=== PATIENT | female | born 1955 | race Caucasian/White ===

== ENCOUNTER 2019-05-05 21:47 | Emergency (ER) | payer MEDICARE, OTHER ==
[~2019-05-05] VITALS: Ht 175.3 cm; Wt 88.5 kg
[2019-05-05] MEDS ORDERED: CITALOPRAM HBR20 MG PO (22:07)
[2019-05-05] MEDS ORDERED: DOXYCYCLINE HY100 MG PO (22:08)
[2019-05-05] MEDS ORDERED: AUGMENTIN 875-1 EACH PO (22:32)
== END 2019-05-05 22:45 | disposition home or self-care (01) ==
LOC: ED 21:47
DX: S00.87XA Other superficial bite of other part of head, initial encounter (principal); W54.0XXA Bitten by dog, initial encounter; Z79.899 Other long term (current) drug therapy
CPT/HCPCS: 12011; 99283-25

== ENCOUNTER 2020-08-01 17:22 | Emergency (ER) | payer MEDICARE, OTHER ==
[~2020-08-01] VITALS: Ht 175.3 cm; Wt 83.9 kg
[~2020-08-01 17:22] MED LIST: AUGMENTIN 875-1 EACH PO; CITALOPRAM HBR20 MG PO; DOXYCYCLINE HY100 MG PO
[2020-08-01] MEDS ORDERED: METOPROLOL SUCC25 MG PO (17:44)
[2020-08-01] MEDS ORDERED: DOXYCYCLINE HYC20 MG PO (17:45)
== END 2020-08-01 20:33 | disposition left against medical advice (07) ==
LOC: ED 17:22
DX: R51.9 Headache, unspecified (principal); Z79.899 Other long term (current) drug therapy
CPT/HCPCS: 70450; 80053; 85025; 96374; 96375; 99284-25; J2405; J2765

== ENCOUNTER 2024-08-17 11:08 | Inpatient (IN) | payer MEDICARE, OTHER ==
[~2024-08-17] VITALS: Ht 175.3 cm; Wt 101.5 kg
--- NOTE | ~2024-08-17 | DS ---
[facility] [address], [place] [address] Draft ADMISSION DATE: 08/17/2024 DISCHARGE DATE: 08/21/2024 REASON FOR ADMISSION: Right lower intraabdominal inflammatory process, possible perforated appendicitis. HISTORY OF PRESENT ILLNESS: This 68-year-old white woman is a patient of AMELIA Barry. The patient has had recurrent persistent pain for over a month, though looked clinically quite normal and clinical exam rather minimal. Despite her lack of progress regarding abdominal pain and having no objective findings of concern, she underwent a CT scan under the direction of Phill Huynh. This showed a possible abscess in the right lower abdomen with possible perforated appendicitis. She was directed to the ER at that point. Evaluation in the emergency room undertaken showed mild tenderness in the right lower abdomen. CT scan showed an impressive inflammatory change in the right lower abdomen with small bowel loops, cecum and appendix somewhat dilated. This was discordant to her clinical exam and appearance; she had no sign of toxicity at all. PAST MEDICAL HISTORY: Noted to be quite unremarkable, having only undergone tonsillectomy and adenoidectomy, but no surgery otherwise. She has no family history of cancer, specifically not colon cancer. PERTINENT PHYSICAL EXAMINATION: GENERAL: Pleasant white woman, looks to be no sign of acute distress. VITAL SIGNS: Temperature 97.9, pulse 61, blood pressure 131/83, O2 saturation 97% on room air. NECK: Trachea is midline. CHEST: Clear. HEART: Regular without murmur. ABDOMEN: Nondistended. Rovsing sign was negative. She did have some tenderness at McBurney's point, which was rather marked. There was no palpable mass. LABORATORY STUDIES: Unremarkable with a normal CBC and urinalysis. White count was 5.68, hematocrit 38.2, platelets 260,000. Chem profile normal. Liver enzymes normal. Albumin low at 2.8, lipase 36. Urinalysis cancelled, though initially planned for evaluation. PATIENT NAME: BERLIN ROSENBAUM DISCHARGE SUMMARY DATE OF : 51 REPORT #: [id number] PHYSICIAN: ANSHU MOLINA MD PCP: PHILL HUYNH PAC REPORT IS CONFIDENTIAL AND NOT TO BE RELEASED WITHOUT AUTHORIZATION [facility] [address], [place] [address] Draft HOSPITAL COURSE: She was resuscitated, given intravenous broad-spectrum antibiotic, Zosyn and recommended to undergo operative intervention that night. She did undergo a laparoscopy where she was found to have a non-manipulatable inflammatory mass in the right lower abdomen. The cecum and small bowel loops were densely adherent to each other. She had conversion to open operation where she was found to have a dense inflammatory process including the mesentery of the small bowel. The area of the cecum and more than a foot of ileum. Operative intervention ultimately included complete mobilization of inflammatory mass away from the retroperitoneum. Identification of the small bowel loop entering the inflammatory cicatrix and normal right mid colon. Segmental resection of the colon and small bowel was undertaken. The inflammatory process explanted entirely. An end-to-side ileal right colonic anastomosis was performed. A drain was placed. Postoperatively, she felt much better. A drain that was placed was removed in a few days as it showed only serosanguineous fluid and no evidence of purulence. She was restarted on her usual medications and by day of discharge, is ambulating well, tolerating regular diet, has minimal incisional pain. The wound is healing well and pathology report is pending. DISCHARGE MEDICATIONS: 1. Tylenol 1000 mg p.o. q.6 hours as needed for pain. 2. Hydromorphone, Dilaudid 2 mg 1-2 p.o. q.4 hours p.r.n. severe pain #10. She will resume her usual medication at home, which includes Naprosyn 500 mg two tabs daily as needed for pain, citalopram 20 mg p.o. daily, metoprolol 25 mg daily. 3. Finasteride 2.5 mg p.o. daily for hair loss. 4. Vitamin D3 25 mcg tablet daily. 5. Vitamin B complex one tablet p.o. daily. 6. Psyllium husk 1.04 g p.o. daily. 7. Zolpidem 5 mg at bedtime as needed for sleep. 8. Dicyclomine 20 mg p.o. t.i.d. for stomach cramps. 9. Naprosyn 500 mg two tabs daily as needed for pain. 10. Albuterol inhaler two puffs q.6h as needed for wheezing. 11. MiraLAX. DISCHARGE DIAGNOSES: 1. Acute inflammatory process involving terminal ileum, appendix and cecum, etiology uncertain, status post complete resection with partial colectomy and ileectomy with end-to-side ileocolonic anastomosis. 2. Anxiety disorder. 3. Reactive airways disease. 4. Longstanding "irritable bowel syndrome.". PATIENT NAME: BERLIN ROSENBAUM DISCHARGE SUMMARY DATE OF : 51 REPORT #: [id number] PHYSICIAN: ANSHU MOLINA MD PCP: PHILL HUYNH PAC REPORT IS CONFIDENTIAL AND NOT TO BE RELEASED WITHOUT AUTHORIZATION [address] [place], [place] [address] Draft FOLLOWUP PLAN: She will call on Thursday to set up an appointment with me for a month or so. If she has problems in the meantime, she will let me know. MD BLANCA Rivera/CHARLES /[id number] cc: PEPPER Barry Dr[facility] Copies: PHILL HUYNH ~ PATIENT NAME: BERLIN ROSENBAUM DISCHARGE SUMMARY DATE OF : 51 REPORT #: [id number] PHYSICIAN: ANSHU MOLINA MD PCP: PHILL HUYNH REPORT IS CONFIDENTIAL AND NOT TO BE RELEASED WITHOUT AUTHORIZATION
[~2024-08-17 11:08] MED LIST changes: +DOXYCYCLINE HYC20 MG PO; +METOPROLOL SUCC25 MG PO; +SEVOFLURANE 250 ML BTL INH ONE
[2024-08-17] MEDS ORDERED: ondansetron HCL 4 MG/2 ML VIAL IV ONE (11:30)
[2024-08-17 11:45] LABS: BASOPHILS 0.7 % (0.1-1.2); EOSINOPHILS 2.6 % (0.7-5.8); HEMATOCRIT 38.2 % (34.1-44.9); HEMOGLOBIN 12.7 g/dL (11.2-15.7); LYMPHOCYTES 19.2 % (19.3-51.7); MCH 32.6 PG (25.6-32.2); MCHC 33.2 g/dL (32.2-35.5); MCV 98.2 fL (79.4-94.8); MONOCYTES 11.6 % (4.7-12.5); NEUTROPHILS 65.7 % (34.0-71.1); PLATELET COUNT 260 K/uL (182-369); RBC 3.89 M/uL (3.93-5.22)
[2024-08-17] MEDS ORDERED: LACTATED RINGER'S 1,000 ML IV SCH ×2 (11:45→18:15)
[2024-08-17 12:01] LABS: ALBUMIN 2.8 g/dL (3.4-5.0); ALBUMIN/GLOBULIN RATIO 0.68 (1.1-2.4); BILIRUBIN, TOTAL 0.4 mg/dL (0.2-1.0); BUN/CREATININE RATIO 12.82 (6.0-28.6); CALCIUM 8.8 mg/dL (8.5-10.1); CREATININE, SERUM 0.78 mg/dL (0.55-1.02); PROTEIN, TOTAL 6.9 g/dL (6.4-8.2)
[2024-08-17] MEDS ORDERED: PIPERACILLIN/TAZOBACTAM 4.5 GM in SODIUM CHLORIDE 0.9% 100 ML IV ONE (12:30)
[2024-08-17] MEDS ORDERED: FAMOTIDINE 20 MG/ 2 ML VIAL IV ONE (12:45)
[2024-08-17] MEDS ORDERED: ROCURONIUM BROMIDE 50 MG/5 ML SYR ONE ×2 (14:14→15:03)
[2024-08-17] MEDS ORDERED: KETOROLAC TROMETHAMINE 30 MG/ML VIAL ONE (14:14)
[2024-08-17] MEDS ORDERED: fentaNYL citrate 100 MCG/2 ML VIAL ONE ×2 (14:14→14:58)
[2024-08-17] MEDS ORDERED: DEXAMETHASONE SOD PHOS 4 MG/ML VIAL ONE ×2 (14:14→15:21)
[2024-08-17] MEDS ORDERED: propofoL 200 MG/20 ML VIAL ONE (14:14)
[2024-08-17] MEDS ORDERED: LIDOCAINE HCL 2% 5 ML SDV ONE (14:14)
[2024-08-17] MEDS ORDERED: ondansetron HCL 4 MG/2 ML VIAL ONE (14:14)
[2024-08-17] MEDS ORDERED: LIDOCAINE HCL 1% 30 ML SDV ONE (14:47)
[2024-08-17] MEDS ORDERED: dexmedeTOMIDine HCl 200 MCG/2 ML VIAL ONE (14:47)
[2024-08-17] MEDS ORDERED: KETAMINE in NS 50 MG/5 ML SYR ONE (14:50)
[2024-08-17] MEDS ORDERED: MAGNESIUM SULFATE 1 GM/2 ML VIAL ONE (14:58)
[2024-08-17] MEDS ORDERED: SODIUM CHLORIDE 0.9% 20 ML IV ONE (15:00)
[2024-08-17] MEDS ORDERED: ESMOLOL HCL 100 MG/10 ML VIAL IV ONE (15:00)
[2024-08-17] MEDS ORDERED: FINASTERIDE5 MG PO (15:06)
[2024-08-17] MEDS ORDERED: Ropivacaine HCl 0.5% 30 ML VIAL ONE (15:17)
[2024-08-17] MEDS ORDERED: SODIUM CHLORIDE 0.9% 60 ML IV ONE (15:17)
[2024-08-17] MEDS ORDERED: LACTATED RINGER'S 1,000 ML IV ONE ×2 (15:23→17:03)
[2024-08-17] MEDS ORDERED: ACETAMINOPHEN 1,000 MG/100 ML VIAL ONE (17:03)
[2024-08-17] MEDS ORDERED: SUGAMMADEX SODIUM 200 MG/2 ML ML ONE (17:22)
--- NOTE | 2024-08-17 18:05 | NUR ---
08/17/24 1805 Sadaf Osorio 1751-PATIENT ARRIVED TO PACU ON 6L MASK ORAL AIRWAY IN PLACE RN DOING JAW THRUST TO MAINTAIN OPEN AIRWAY. SINUS BRADYCARDIA HR 57. IVF INFUSING. DRESSING TO MIDLINE ABDOMEN CDI WITH ERNESTO DRAIN TO RLQ SANGUINOUS DRAINAGE. GARG CATHETER DRAINING YELLOW URINE. 1800-PATIENT REACTIVE TO VERBAL STIMULI SLIGHTLY LIFTS HEAD OPENS EYES AND RAISES RIGHT HAND. ORIENTED TO PACU ORAL AIRWAY REMOVED. DENIES PAIN OR NAUSEA. PILLOW PLACED BENEATH HEAD. HOB ELEVATED. 6L MASK RR EVEN 97% PATIENT DOZES BACK TO SLEEP.
[2024-08-17] MEDS ORDERED: ENOXAPARIN SODIUM 40 MG/0.4 ML SYR SUB-Q SCH (18:11)
[2024-08-17] MEDS ORDERED: ondansetron HCL 4 MG/2 ML VIAL IV PRN ×2 (18:15)
[2024-08-17] MEDS ORDERED: ACETAMINOPHEN 1,000 MG/100 ML VIAL IV PRN (18:15)
[2024-08-17] MEDS ORDERED: NALOXONE HCL 0.4 MG SYR IV PRN (18:15)
[2024-08-17] MEDS ORDERED: HYDROmorphone HCL 1 MG/ML SYR IV PRN ×2 (18:15)
[2024-08-17] MEDS ORDERED: LIDOCAINE 2% VISCOUS 6 ML SYR TOP ONE (18:15)
[2024-08-17] MEDS ORDERED: fentaNYL citrate 50 MCG/ML SDV IV PRN (18:15)
[2024-08-17] MEDS ORDERED: KETOROLAC TROMETHAMINE 15 MG/ML VIAL IV PRN (18:15)
[2024-08-17] MEDS ORDERED: IBLOOD GLUCOSE TEST STRIP 1 EA TEST VI PRN (18:15)
[2024-08-17 18:56] VITALS: BP 100/59
--- NOTE | 2024-08-17 19:01 | NUR ---
Patient to the medical floor. Patient is drowsy, pt easily wakes to verbal sitmuli and answers questions appropriately. Patient reports tolerable pain, 2/10 in RUQ. Vital signs stable, cpox in place, sp02 93% on 3L 02, resp even and non labored. Abdominal midline dressing noted, cdi. ERNESTO drain to RLQ. Patient oriented to room and call light.
--- NOTE | 2024-08-17 19:25 | NUR ---
REPORT RECEIVED FROM KAVITHA HERBERT. pt RESTING IN THE BED. pt C/O 09/15 PAIN. PRN PAIN MED ADMINISTERED BY PIEDAD PLUMMER. pt BOARD UPDATED. pt DENIES ANY OTHER NEEDS AT THIS TIME. CALL LIGHT WITHIN REACH.
--- NOTE | 2024-08-17 19:30 | NUR ---
Admin dilaudid 1mg iv for reports of 09/15 right upper abdomen.
[2024-08-17 20:05] VITALS: BP 99/53
--- NOTE | 2024-08-17 20:50 | NUR ---
ASSESSMENT AND VITAL SIGNS DONE. pt C/O 8 PAIN. PRN PAIN MEDS ADMINISTERED. CPOX ON. MID LINE INCISION CDI. ERNESTO DRAIN DRESSING INTACT. NO DRAINAGE NOTED AROUND THE TUBING. BOWEL TONES ARE ACTIVE. pt DENIES ANY OTHER NEEDS AT THIS TIME. CALL LIGHT WITHIN REACH.
[2024-08-17 20:58] VITALS: BP 96/59
[2024-08-17 21:00] VITALS: BP 96/59
[2024-08-17] MEDS ORDERED: FAMOTIDINE 20 MG/ 2 ML VIAL IV SCH (21:00)
[2024-08-17 22:00] VITALS: BP 101/53
--- NOTE | 2024-08-17 22:03 | NUR ---
FINAL SET OF POST-OP VS OBTAINED, B/P STILL SOFT. PT VERY SWEATY, STATES WAS HAVING A "HOT FLASH". TOOTHBRUSH & TOOTHPASTE PROVIDED PER REQUEST. LIGHTS DIMMED PER PT REQUEST.
--- NOTE | 2024-08-17 22:15 | NUR ---
pt C/O 09/15 PAIN. PRN PAIN MEDS ADMINISTERED. pt DENIES ANY OTHER NEEDS AT THIS TIME. CALL LIGHT WITHIN REACH.
--- NOTE | 2024-08-17 23:02 | NUR ---
pt RESTING IN THE BED WITH EYES CLOSED. RR EVEN AND UNLABORED. CALL LIGHT WITHIN REACH.
[2024-08-18] VITALS (9 sets, daily range): BP systolic 102–120; BP diastolic 54–64
--- NOTE | 2024-08-18 01:41 | NUR ---
IN RM TO DO VITAL SIGNS. pt C/O 2/10 PAIN. PRN PAIN MEDS ADMINISTERED. 3LNC. WATER REFRESHED. ASSESSMENT DONE. pt STATES HER PAIN JUMPS UP TO A 8/10 WHEN SHE MOVES. pt DENIES ANY OTHER NEEDS AT THIS TIME. CALL LIGHT WITHIN REACH.
--- NOTE | 2024-08-18 03:32 | NUR ---
pt CALLED AND C/O 09/15 PAIN. PRN PAIN MEDS ADMINISTERED. WATER REFRESHED. pt DENIES ANY OTHER NEEDS AT THIS TIME. CALL LIGHT WITHIN REACH.
--- NOTE | 2024-08-18 05:13 | NUR ---
pt RESTING IN THE BED WITH EYES CLOSED. RR EVEN AND UNLABORED. CALL LIGHT WITHIN REACH.
[2024-08-18 05:34] LABS: EOSINOPHILS 0 % (0.7-5.8)
[2024-08-18 05:37] LABS: BASOPHILS 0.2 % (0.1-1.2); HEMATOCRIT 34.8 % (34.1-44.9); HEMOGLOBIN 11.2 g/dL (11.2-15.7); LYMPHOCYTES 6.4 % (19.3-51.7); MCH 32.2 PG (25.6-32.2); MCHC 32.2 g/dL (32.2-35.5); MONOCYTES 4.4 % (4.7-12.5); NEUTROPHILS 88.7 % (34.0-71.1); PLATELET COUNT 292 K/uL (182-369); RBC 3.48 M/uL (3.93-5.22)
[2024-08-18 05:48] LABS: ANION GAP 11.4 (7-21); BUN/CREATININE RATIO 10.12 (6.0-28.6); CALCIUM 8.3 mg/dL (8.5-10.1); CREATININE, SERUM 0.79 mg/dL (0.55-1.02); POTASSIUM 4.4 mmol/L (3.5-5.1)
--- NOTE | 2024-08-18 05:54 | NUR ---
CARTON GLUING MACHINE OPERATOR OBTAINED VITALS AND I&O. PT STATES NO NEEDS AT THIS TIME. CALL LIGHT WITHIN REACH.
--- NOTE | 2024-08-18 06:40 | NUR ---
pt C/O 08/16. PRN PAIN MEDS ADMINISTERED. pt DENIES ANY OTHER NEEDS AT THIS TIME. CALL LIGHT WITHIN REACH.
--- NOTE | 2024-08-18 07:02 | NUR ---
Pt report received from PIEDAD Han. Pt is resting in bed, eyes closed, breathing is regular, even, and non-labored. Side rails up x4, call light in reach.
--- NOTE | 2024-08-18 07:59 | NUR ---
UR CLINICAL REVIEW: 2 MN SANDRA, MEETS INPT FOT PERFORATED VISCUX INCLUDING POSSIBLE APPENDICITIS IV FLUIDS, IV ANALGESICS, CLEAR LIQUID DIET MEDICARE INPT 08/17/2024 @ 0523 ORDER MATCHES REG NO AUTH REQUIRED PER MEDICARE RULES PLAN TO DC TO HOME WHEN MEDICALLY STABLE.
--- NOTE | 2024-08-18 07:59 | NUR ---
Advised by Hellen Kingston that this pt's O2 is off and RT is in the room with pt, pt sats in the 90s.
--- NOTE | 2024-08-18 09:14 | NUR ---
Pt up, ambulating hallways with Aide DaEmiliana Kingston.
--- NOTE | 2024-08-18 09:24 | NUR ---
HOURLY ROUNDING. PATIENT AND I AMBULATED AROUND THE NURSE STATION, LINENS HAVE BEEN CHANGED. WATER CUP HAS BEEN FILLED AND BOARD HAS BEEN UPDATED. PATIENT IS NOW IN RECLINER
--- NOTE | 2024-08-18 09:33 | HP ---
[facility] [address], [place] [address] Signed ADMISSION DATE: 08/17/2024 PREOPERATIVE DIAGNOSIS: Right lower intraabdominal abscess, possible perforated viscus including possible appendicitis. HISTORY OF PRESENT ILLNESS: This 68-year-old white woman is sent over four weeks of increasing right lower abdominal pain. Her primary provider, Phill Huynh, treated her initially empirically for urinary tract infection and some of her pain and tenderness was in the suprapubic area. A urinalysis was said to have been found to be negative and therefore treatment not further pursued. She had increasing pain in the right lower abdomen and on that basis, underwent a CT scan of the abdomen today as an outpatient. The findings noted, showed a large area of phlegmon in around the small bowel with wall thickening with question of possible perforated appendicitis. Incidentally noted was a bandlike hypodensity of the right lobe of the liver measuring 14 mm in maximum dimension and was considered "nonspecific." The appendix was considered large proximally measuring 11 mm extending caudally to the ill-defined inflammation in and around small bowel loops with bowel wall thickening. The tip of the appendix was not defined. The phlegmonous fluid collection measured 5.5 cm in maximum dimension. Terminal ileum was considered normal. PAST MEDICAL HISTORY: Surprisingly unremarkable. She did undergo tonsillectomy and adenoidectomy in the distant past but has never had surgery otherwise. HOME MEDICATIONS: Include 1. Finasteride. 2. Phenazopyridine (Pyridium and dicyclomine). She does admit to a lifelong history of "irritable bowel syndrome" but notes that since these symptoms have developed she has not had any diarrhea or other similar problem. FAMILY HISTORY: She denies any family history of colon cancer. SOCIAL HISTORY: She lives alone. 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 Electronically Signed By: ANSHU MOLINA MD 08/18/24 0933 PATIENT NAME: BERLIN ROSENBAUM HISTORY AND PHYSICAL DATE OF : 51 REPORT #: [id number] PHYSICIAN: ANSHU MOLINA MD PCP: PHILL HUYNH PAC REPORT IS CONFIDENTIAL AND NOT TO BE RELEASED WITHOUT AUTHORIZATION [facility] [address], [place] [address] Signed REVIEW OF SYSTEMS: She denies any shortness of breath or chest pain. She has had no dysphagia or dysuria. Denies any hematemesis. Her pain is dominantly in the right lower abdomen but also in the suprapubic area. PHYSICAL EXAMINATION: GENERAL: A very pleasant white woman who looks to be in no sign of acute distress. VITAL SIGNS: Temperature is 97.9, pulse 61, blood pressure 131/83, oxygen saturation 97% on room air. NECK: Trachea is midline. CHEST: Clear. HEART: Regular without murmur. ABDOMEN: Nondistended. Rovsing sign is negative. She does have tenderness at McBurney's point, which is marked. There is no palpable mass. EXTREMITIES: Show no clubbing, cyanosis, or edema. LABORATORY STUDIES: Show a white count of 5.68, hematocrit 38.2, platelets 260,000. Chem profile is essentially normal. Liver enzymes normal. Albumin low at 2.8, lipase 36. Urinalysis was canceled, though initially planned for evaluation. Review of the CT scan was undertaken with findings noted above. ASSESSMENT: Whatever the underlying process is, it has been going on for several weeks by her history. This may represent perforated appendicitis with all walled-off abscess or may represent a more sinister problem including carcinoma of the cecum or some small bowel problem. There is no sign of free air and there is not a well-formed abscess at present, only phlegmonous area with fluid collection. I would recommend laparoscopy breakdown of loculations, drainage of abscess as appropriate and placement of drain and if possible appendectomy as appropriate. This problem may require open operation, which may require bowel resection, particularly if neoplasm is identified. Most likely finding will be perforated appendicitis with periappendiceal abscess and local phlegmon formation. In any case, we were prepared for whatever may be found and I discussed with her the risk of the operation including but not limited to bleeding, infection, need for bowel resection, need for open surgery, need for drain, and need for delayed procedure. Specifically, if structures are too inflamed and cannot be well identified, which would require interval appendectomy or other interval resectional therapy. She understands all of this and wished to proceed. Electronically Signed By: ANSHU MOLINA MD 08/18/24 0933 PATIENT NAME: BERLIN ROSENBAUM HISTORY AND PHYSICAL DATE OF : 51 REPORT #: [id number] PHYSICIAN: ANSHU MOLINA MD PCP: PHILL HUYNH [facility] REPORT IS CONFIDENTIAL AND NOT TO BE RELEASED WITHOUT AUTHORIZATION [address] [address] Signed Anshu Molina MD JM/MODL /[id number] cc: Dr. Teofilo Pryor PA-C Copies: PHILL HUYNH ~ Electronically Signed By: ANSHU MOLINA MD 08/18/24 0933 PATIENT NAME: BERLIN ROSENBAUM HISTORY AND PHYSICAL DATE OF : 51 REPORT #: [id number] PHYSICIAN: ANSHU MOLINA MD PCP: PHILL HUYNH REPORT IS CONFIDENTIAL AND NOT TO BE RELEASED WITHOUT AUTHORIZATION
--- NOTE | 2024-08-18 10:16 | NUR ---
PT NOT AVAILABLE FOR VISIT. PROVIDED PRAYER.
[2024-08-18] MEDS ORDERED: AMBEREN PO (10:45)
[2024-08-18] MEDS ORDERED: VITAMIN D325 MCG PO (10:46)
[2024-08-18] MEDS ORDERED: FIBER0.52 GM PO (10:46)
[2024-08-18] MEDS ORDERED: B COMPLEX1 EACH PO (10:46)
[2024-08-18] MEDS ORDERED: DICYCLOMINE HCL20 MG PO (10:47)
[2024-08-18] MEDS ORDERED: NAPROXEN500 MG PO (10:47)
[2024-08-18] MEDS ORDERED: ZOLPIDEM TARTRAT5 MG PO (10:47)
[2024-08-18] MEDS ORDERED: VENTOLIN HFA18 GM INH (10:48)
[2024-08-18] MEDS ORDERED: LUBRICANT OU (10:49)
--- NOTE | 2024-08-18 10:49 | NUR ---
MED REC COMPLETE
--- NOTE | 2024-08-18 11:23 | NUR ---
ALERT AND ORIENTED IN RECLINER, FRIENDS/FAMILY IN ROOM. PATIENT LIVES IN HOUSE WITH 3-4 STEPS TO GET INSIDE, BUT DOES HAVE HANDRAILS. NO DME. DRIVES AT BASELINE. HAS NO DIFFICULTY PAYING UTILTIES FOR FOOD OR MEDS. STATES HER PLAN IS TO RETURN HOME WHEN MEDICALLY READY. NO KNOWN CM NEEDS AT THIS TIME.
--- NOTE | 2024-08-18 12:31 | NUR ---
In with pt for pain med administration for pain in mid abdomen 7 out 10. Pt in chair, stands and transfers with fww, SBA to bed, then states she thinks she needs to pee. IV S/L for restroom use. Pt up to void but only went "two drops". Pt back to bed, socks off, scd's on, IV fluids running. Pain med administered per emar. Valeria Camarillo, CNA2 in to bladder scan pt for post residual void, 12ml noted in bladder. Pt lunch tray arrived and pt is eatiner her soup and tolerating it well. Side rails up x2, call light in reach.
--- NOTE | 2024-08-18 13:15 | NUR ---
In with pt for pain reassessment. Pt is visiting with family/friends in her room. She reports her pain is a 4 out of 10 in the midline. Pt states she has been belching but not passing gas. BT active x4. Pt denies needs at this time. Call light in reach.
--- NOTE | 2024-08-18 15:45 | NUR ---
In with pt for pain reassessment after IV dilaudid administered. Pt is talking and laughing on her cell phone. She states her pain in her abdomen is more like "bloating" now and it's about a 5. Pt has ambulated the hallway 3 times this shift, so far. Advised pt that the more she ambulates, the more it will help move any gas around and stimulate peristalsis. Pt states that she will use her call light when she gets off the phone.
--- NOTE | 2024-08-18 16:05 | NUR ---
Pt up to ambulate hallways x2 (walked down the pathway towards the front of the hospital and the entire med-surg loop x2 with this RN), tolerated well, states she feels better up and walking. Pt able to belch, but no flatus yet. Pt back to room to sit on toilet to attempt to empty bladder. Pt void 25ml into collection hat. Bladder scan volume of 25ml noted. Dr. Brar notified by phone.
--- NOTE | 2024-08-18 16:37 | NUR ---
PC to Dr. Brar to update him on this pt's post dejesus cath status. Verbal order obtained for one 500ml LR bolus x1.
[2024-08-18] MEDS ORDERED: LACTATED RINGER'S 500 ML IV PRN (16:45)
--- NOTE | 2024-08-18 18:28 | NUR ---
PATIENT IN BED AT THIS TIME. SPECIAL LIBRARY LIBRARIAN CHARTED VITALS AND I&O'S. CALL LIGHT WITHIN REACH, NO FURTHER NEEDS.
--- NOTE | 2024-08-18 19:05 | NUR ---
REPORT RECEIVED FROM PATRICK RN. pt RESTING IN THE BED. FAMILY IN THE RM. pt DENIES ANY OTHER NEEDS AT THIS TIME. CALL LIGHT WITHIN REACH. BOARD UPDATED.
--- NOTE | 2024-08-18 19:38 | NUR ---
pt UP WALKING LAPS IN THE XIONG OF MED/SURG. pt WALKING WITH FAMILY. pt DENIES ANY OTHER NEEDS AT THIS TIME.
--- NOTE | 2024-08-18 20:45 | NUR ---
ASSESSMENT AND VITAL SIGNS DONE. pt C/O 5/10 PAIN. PRN PAIN MEDS ADMINISTERED. pt STATES SHE HAD GAS WHILE ON HER WALK AND AFTER IN THE BR. pt DENIES ANY OTHER NEEDS AT THIS TIME. CALL LIGTH WITHIN REACH. BOWEL TONES ARE ACTIVE.
--- NOTE | 2024-08-18 22:37 | NUR ---
pt RESTING IN THE BED WITH EYES CLOSED. RR EVEN AND UNLABORED. CALL LIGHT WITHIN REACH.
[2024-08-19] VITALS (9 sets, daily range): BP systolic 113–161; BP diastolic 56–81
--- NOTE | 2024-08-19 00:16 | NUR ---
pt RESTING IN THE BED WITH EYES CLOSED. RR EVEN AND UNLABORED. CALL LIGHT WITHIN REACH.
--- NOTE | 2024-08-19 00:44 | NUR ---
pt CALLED AND C/O 11/16 PAIN. PRN PAIN MEDS ADMINISTERED. pt DENIES ANY OTHER NEEDS AT THIS TIME. CALL LIGHT WITHIN REACH.
--- NOTE | 2024-08-19 02:37 | NUR ---
pt RESTING IN THE BED WITH EYES CLOSED. RR EVEN AND UNLABORED. CALL LIGHT WITHIN REACH.
--- NOTE | 2024-08-19 03:47 | NUR ---
pt CALLED AND C/O 12/16 PAIN. PRN PAIN MEDS ADMINISTERED. pt WAS UP TO THE BR. BLADDER SCAN DONE WITH A RESULTS OF 200mL. pt DENIES ANY OTHER NEEDS A THIS TIME. CALL LIGHT WITHIN REACH.
--- NOTE | 2024-08-19 06:08 | NUR ---
IN RM TO DO VITAL SIGNS. pt BACK FROM THE BR. POST-RESIDUAL VOID OF 62mL ON THE BLADDER SCAN. pt DENIES ANY OTHER NEEDS AT THIS TIME. CALL LIGHT WITHIN REACH. ERNESTO EMPTIED.
--- NOTE | 2024-08-19 07:23 | NUR ---
REPORT RECEIVED FROM PIEDAD HERNANDEZ. PATIENT RESTING IN BED WITH EYES CLOSED, RR EVEN AND UNLABORED. IVF INFUSING WNL. CALL LIGHT AND PERSONAL BELONGINGS IN REACH.
--- NOTE | 2024-08-19 08:31 | NUR ---
PATIENT IS IN BED AT THIS TIME, SHE GOT UP AND WENT FOR A WALK WHILE SHE WAS DOING THAT I CHANGED HER BEDDING AND SET OUT A NEW GOWN AND BED BATH SUPPLIES. SHE USED THE RESTROOM, WASHED HER FACE AND BRUSHED HER TEETH, SENIOR CHEMICAL PROCESS ENGINEER CHARTED VITALS AND I&O'S. PATIENT ASKED FOR SOMETHING TO HELP WITH HER GAS/UPSET TUMMY, PIEDAD BOUDREAUX NOTIFIED. CALL LIGHT WITH IN REACH AND NOTHING ELSE NEEDED AT THIS.
--- NOTE | 2024-08-19 09:05 | NUR ---
MEDICATION ADMINISTERED, SEE MAR. ASSESSMENT COMPLETE. PATIENT IS COMPLAINING OF EDEMA IN HER BILAT LOWER EXTREMETIES, PARTICULARLY HER KNEES AND THIGHS. PATIENT HAS SOME MILD CRACKLES AT THE BASES OF BOTH LUNGS BUT DENIES SHORTNESS OF BREATH. PATIENT ALSO COMPLAINS OF "A LOT OF GAS" AND IS REQUESTING A GAS MEDICATION. MD NOTIFIED. PATIENT IS SALINE LOCKED AT THIS TIME. ERNESTO DRAIN TO RLQ IS EMPTIED AND RECORDED. PATIENT ENCOURAGED TO AMBULATE FREQUENTLY TODAY, PATIENT VERY AGREEABLE TO THIS. MD ARRIVES TO ROOM, ANSWERS ALL QUESTIONS. PATIENT REMAINS UP AND WALKING AROUND IN ROOM, NO OTHER REQUESTS AT THIS TIME.
[2024-08-19] MEDS ORDERED: ACETAMINOPHEN 500 MG TAB PO PRN (09:45)
--- NOTE | 2024-08-19 09:47 | NUR ---
VISITED WITH PT WHILE AMBULATING IN XIONG. PT IN OVERALL GOOD SPIRITS, NO IMMEDIATE NEEDS. INSPECTOR HAIRSPRING PROVIDED SUPPORTIVE PRESENCE, HOSPITALITY, PRAYER, NORMALIZED PT EXPERIENCE. PT EXPRESSED GRATITUDE, HOPE.
--- NOTE | 2024-08-19 10:43 | NUR ---
INTO SEE PATIENT. IMM COMPLETED. NO FUTHER CM NEEDS.
[2024-08-19] MEDS ORDERED: SIMETHICONE 80 MG CHEW PO PRN (11:00)
--- NOTE | 2024-08-19 11:26 | NUR ---
PATIENT HAS VISITOR PRESENT AND IS UP IN THE RECLINER, REPORTS SHE IS GOING TO TAKE A WALK SOON.
--- NOTE | 2024-08-19 12:31 | NUR ---
LUNCH TRAY REMOVED. PATIENT IS UP AND AMBULATING IN ROOM, REPORTS SHE WILL BE USING THE BATHROOM SHORTLY. REPORTS HER ABDOMINAL PAIN IS 4/10 AND TOLERABLE. NO REQUESTS, CALL LIGHT AND PERSONAL BELONGINGS IN REACH.
--- NOTE | 2024-08-19 13:23 | NUR ---
PATIENT IS AMBULATING IN HALLS AT THIS TIME.
--- NOTE | 2024-08-19 13:36 | NUR ---
PATIENT RESTING IN BED AFTER AMBULATING IN XIONG, REPORTS SHE FEELS HER PAIN IS INCREASING. PRN PAIN MEDICATION ADMINISTERED, SEE MAR. PATIENT RESTING IN BED WITH FAN ON HER AT THIS TIME, CALL LIGHT AND PERSONAL BELONGINGS IN REACH.
--- NOTE | 2024-08-19 17:45 | NUR ---
PATIENT IS IN BED AT THIS TIME SUPERVISORY AIR INTERCEPT CONTROLLER CHARTED VITALS AND I&O'S, EMPTIED ERNESTO DRAIN, GOT FRESH ICE WATER, CALL LIGHT WITH IN REACH AND NOTHING ELSE NEEDED AT THIS TIME.
--- NOTE | 2024-08-19 18:21 | NUR ---
PATIENT IS AWAKE AND ALERT IN BED, REPORTS SHE IS TRYING TO TAKE A NAP. PATIENT SAYS HER PAIN IS IMPROVED AND RATES IT A 2/10 AT THIS TIME. CALL LIGHT AND PERSONAL BELONGINGS IN REACH. PATIENT HAS TWO VISITORS ENTER THIS RN IS EXITING.
--- NOTE | 2024-08-19 19:40 | NUR ---
REPORT RECEIVED FROM JANUSZ HERBERT. pt RESTING IN THE BED. pt C/O 06/16 PAIN. PRN PAIN MEDS ADMINISTERED. pt DENIES ANY OTHER NEEDS AT THIS TIME. CALL LIGHT WITHIN REACH.
--- NOTE | 2024-08-19 22:13 | NUR ---
ASSESSMENT AND VITAL SIGNS DONE. pt UP TO THE BR. MIDLINE INCISION HAS OLD SHADOWING, NO NEW DRAINAGE, CDI. ERNESTO DRAIN, WITH NO NEW DRAINAGE, CDI. LAP SITE NO NEW DRAINAGE, CDI. SCHEDULED MEDS ADMINISTERED. pt DENIES ANY OTHER NEEDS AT THIS TIME. CALL LIGHT WITHIN REACH. IV ASSESSED, WNL.
--- NOTE | 2024-08-19 23:17 | NUR ---
pt RESTING IN THE BED. pt DENIES ANY OTHER NEEDS AT THIS TIME. CALL LIGHT WITHIN REACH.
[2024-08-20] VITALS (9 sets, daily range): BP systolic 125–144; BP diastolic 60–81
--- NOTE | 2024-08-20 00:56 | NUR ---
pt RESTING IN THE BED WITH EYES CLOSED. RR EVEN AND UNLABORED. CALL LIGHT WITHIN REACH.
--- NOTE | 2024-08-20 03:01 | NUR ---
pt RESTING IN THE BED. pt REQUETED WARM BLANKETS. WARM BLANKETS PROVIDED. pt DENIES ANY OTHER NEEDS AT THIS TIME. CALL LIGHT WITHIN REACH
--- NOTE | 2024-08-20 03:57 | NUR ---
pt CALLED AND C/O 09/15 PAIN. PRN PAIN MEDS ADMINISTERED. pt DENIES ANY OTHER NEEDS AT THIS TIME. CALL LIGHT WITHIN REACH.
[2024-08-20 05:10] LABS: BASOPHILS 0.9 % (0.1-1.2); EOSINOPHILS 4.6 % (0.7-5.8); HEMATOCRIT 34.7 % (34.1-44.9); HEMOGLOBIN 11.3 g/dL (11.2-15.7); LYMPHOCYTES 17.5 % (19.3-51.7); MCH 32.2 PG (25.6-32.2); MCHC 32.6 g/dL (32.2-35.5); MCV 98.9 fL (79.4-94.8); MONOCYTES 8.8 % (4.7-12.5); NEUTROPHILS 67.8 % (34.0-71.1); PLATELET COUNT 270 K/uL (182-369); RBC 3.51 M/uL (3.93-5.22)
--- NOTE | 2024-08-20 05:19 | NUR ---
WEB CONTENT DEVELOPER OBTAINED VITALS AND I&O. PT STATES NO NEEDS AT THIS TIME. CALL LIGHT WITHIN REACH.
[2024-08-20 05:29] LABS: ANION GAP 10.8 (7-21); BUN/CREATININE RATIO 5.71 (6.0-28.6); CALCIUM 9.1 mg/dL (8.5-10.1); CREATININE, SERUM 0.7 mg/dL (0.55-1.02); POTASSIUM 3.8 mmol/L (3.5-5.1)
--- NOTE | 2024-08-20 07:00 | NUR ---
REPORT RECEIVED FROM PIEDAD HERNANDEZ. PATIENT IS RESTING IN BED WITH EYES CLOSED, RR EVEN AND UNLABORED. PIEDAD HERNANDEZ EMPTIES SPECIMEN CUP WITH SEROSANGUINOUS DRAINAGE FROM ERNESTO DRAIN WHICH PATIENT HAS EMPTIED HERSELF. CALL LIGHT AND PERSONAL BELONGINGS IN REACH.
--- NOTE | 2024-08-20 08:39 | NUR ---
MEDICATION ADMINISTERED, SEE MAR. ASSESSMENT COMPLETE. PATIENT'S ABDOMEN IS MUCH SOFTER AND FLATTER TODAY, PATIENT ALSO AGREES. PATIENT REPORTS SHE HAS HAD MULTIPLE BOWEL MOVEMENT OVERNIGHT AND CONTINUES HAVING FLATULENCE. BOWEL TONES ARE ACTIVE IN ALL QUADRANTS, PATIENT DENIES NAUSEA BUT ENDORSES 3/10 PAIN PARTICULARLY TO HER LLQ. PRN PAIN MEDICATION ADMINISTERED AND PATIENT IS UP TO WALK LAPS IN THE HALLS AFTER ASSESSMENT IS COMPLETED. MIDLINE DRESSING IS UNCHANGED FROM YESTERDAY WITH A SMALL AMOUNT OF DARK RED SHADOWING AT THE CENTRE. LAP SITE IS DRY AND INTACT. ERNESTO INSERTION SITE HAS A SMALL AMOUNT OF SS DRAINAGE TO GAUZE, OTHERWISE DRESSING IS INTACT. ERNESTO BULB WITH A SMALL AMOUNT OF SS FLUID. PATIENT REPORTS EMPTYING ERNESTO DRAIN BY HERSELF LAST NIGHT WITHOUT ASSISTANCE. PATIENT HAS NO REQUESTS AT THIS TIME, UP AND AMBULATING IN HALLS.
--- NOTE | 2024-08-20 08:40 | NUR ---
SBA TO THE BATHROOM. PATIENT AMBULATED HALLWAYS AFTER FINISHING BREAKFAST. INDEPENDENTLY WASHED THEIR FACE AND HANDS, TEETH, AND CLEANED HEARING AIDS.NO OTHER CARES WERE REQUESTED.
--- NOTE | 2024-08-20 08:49 | NUR ---
TAKING OFF RT SERVICE PER PATIENT REQUEST.
--- NOTE | 2024-08-20 10:33 | NUR ---
PATIENT RESTING IN BED WATCHING TELEVISION. REPORTS HER PAIN IS STILL A 3/10 BUT DOES NOT WANT FURTHER INTERVENTIONS AT THIS TIME. PATIENT STATES SHE WILL ATTEMPT TO TAKE A NAP. NO REQUESTS, CALL LIGHT AND PERSONAL BELONGINGS IN REACH.
--- NOTE | 2024-08-20 11:05 | NUR ---
PATIENT IS TEARFUL AND EXPRESSING CONCERNS REGARDING HER MEDICATIONS, PARTICULARLY HER CITALOPRAM. VISITOR PRESENT IN ROOM ALSO. THERAPEUTIC COMMUNICATION PROVIDED.
--- NOTE | 2024-08-20 12:40 | NUR ---
MD MOLINA IN TO ASSESS AND SEE PATIENT. REMOVED ERNESTO DRAIN, PATIENT TOLERATES WELL. PATIENT HAS ALL QUESTIONS AND CONCERNS ADDRESSED AND IS NO LONGER TEARFUL OR UPSET AFTER CONVERSATION. PATIENT HAS TWO FRIENDS PRESENT THROUGHOUT ASSESSMENT. PATIENT EXCITED TO HAVE REGULAR FOOD AND HAS NO REQUESTS AT THIS TIME, CALL LIGHT AND PERSONAL BELONGINGS IN REACH.
[2024-08-20] MEDS ORDERED: diphenhydrAMINE HCL 50 MG CAP PO PRN (13:00)
[2024-08-20] MEDS ORDERED: CITALOPRAM HYDROBROMIDE 20 MG TAB PO SCH (13:00)
[2024-08-20] MEDS ORDERED: METOPROLOL TARTRATE 50 MG TAB PO ONE (13:00)
[2024-08-20] MEDS ORDERED: IBUPROFEN 600 MG TAB PO PRN (13:00)
--- NOTE | 2024-08-20 14:24 | NUR ---
MEDICATION ADMINISTERED, SEE MAR. PATIENT ERNESTO REMOVAL SITE HAS A BANDAID WITH SS SHADOWING NOTED TO PAD. PATIENT EXPRESSES CONCERN REGARDING HER MIDLINE LAP SITE. STERI-STRIPS ARE IN PLACE WITH DRIED BLOODY DRAINAGE, BUT PATIENT IS ABLE TO LIFT A FLAP OF THE STERI-STRIP AND THE WOUND HAS EDGES WITH YELLOW AND PINK TISSUE NOTED. PATIENT DENIES PAIN OR DISCOMFORT AT THIS TIME, REPORTS HER REGULAR LUNCH WENT WELL AND SHE ALSO HAD ANOTHER BOWEL MOVEMENT. NO REQUESTS, CALL LIGHT AND PERSONAL BELONGINGS IN REACH.
--- NOTE | 2024-08-20 19:37 | NUR ---
RECEIVED REPORT FROM DAY SHIFT RN. PATIENT IS RESTING IN BED VISITNG WITH FAMILY. PATIENT DENIES ANY NEEDS AT THIS TIME. CALL LIGHT IN REACH.
[2024-08-20] MEDS ORDERED: FAMOTIDINE 20 MG TAB PO SCH (21:00)
--- NOTE | 2024-08-20 21:49 | NUR ---
PATIENTS VITALS TAKEN AND RECORDED. INTAKE AND OUTPUT RECORDED. PATIENT DENIES ANY PAIN OR NAUSEA. PATIENTS IV FLUSHED AND SL PER ORDER. PATIENTS PM MEDS GIVEN PER ORDER. PATIENT GIVEN TN SLEEP AID PER REQUEST. PATIENT ASSESMENT COMPLETED. PATIENT DENIES ANY FURTHER NEEDS. CALL LIGHT IN REACH.
--- NOTE | 2024-08-20 22:26 | NUR ---
PATIENT IS RESTING IN BED WITH EYES CLOSED, RR 15. CALL LIGHT IN REACH. NAD NOTED.
--- NOTE | 2024-08-21 00:24 | NUR ---
PATIENT IS RESTING IN BED ON RIGHT SIDE WITH EYES CLSOED, RR 16. CALL LIGHT IN REACH. NAD NOTED.
--- NOTE | 2024-08-21 02:00 | NUR ---
PATIENT IS RESTING IN BED WITH EYES CLOSED, RR 16. CALL LIGHT IN REACH. NAD NOTED.
--- NOTE | 2024-08-21 03:00 | NUR ---
PATIENT CALLED AND REPORTED 7/10 ADB PAIN, PRN MEDICATION GIVEN PER ORDER. PATIENT DENIES ANY NAUSEA. PATIENT DENIES ANY FURTHER NEEDS. CALL LIGHT IN REACH.
--- NOTE | 2024-08-21 03:38 | NUR ---
PATIENT IS RESTING IN BED ON LEFT SIDE WITH EYES CLOSED, RR 15. NAD NOTED. CALL LIGHT IN REACH.
--- NOTE | 2024-08-21 04:21 | NUR ---
PATIENT IS RESTING IN BED WITH EYES CLOSED, RR 16. CALL LIGHT IN REACH. NAD NOTED.
[2024-08-21 06:25] VITALS: BP 157/82
--- NOTE | 2024-08-21 06:42 | NUR ---
PATIENT UP TO BR AND ABLE TO VOID. PATIENT IS BACK IN BED RESTING. PATIENTS VITALS TAKEN AND RECORDED. INTAKE AND OUTPUT RECORDED. PATIENT RATES PAIN AT A 7/10 IN HER LOW ABD, PRN PAIN MEDICATION GIVEN PER ORDER. PATIENT DENIES ANY NAUSEA. PATIENT DENIES ANY FURTHER NEEDS. CALL LIGHT IN REACH.
[2024-08-21 06:44] VITALS: BP 157/82
--- NOTE | 2024-08-21 07:13 | NUR ---
Pt report received from PIEDAD Fontana. Pt is resting in bed on her left side, eyes closed, breathing is regular, even, and non-labored. Side rails up x4, call light and bedside table in reach. White board updated.
[2024-08-21 08:46] VITALS: BP 126/68
[2024-08-21 09:00] VITALS: BP 126/68
--- NOTE | 2024-08-21 11:24 | NUR ---
HOURLY ROUNDING. PATIENT AMBULATING AROUND THE NURSE STATION. PATIENT REPORTS FEELING GOOD AFTER HER SHOWER. NO REQUEST FROM PATIENT SHE APPEARS TO BE LEVAR GOOD MOOD. CALL LIGHT HAS HAS BEEN PLACED NEXT TO RECLINER CHAIR.
[2024-08-21] MEDS ORDERED: ACETAMINOPHEN500 MG PO (12:47)
[2024-08-21] MEDS ORDERED: DILAUDID2 MG PO (12:48)
[2024-08-21 13:26] VITALS: BP 134/64
[2024-08-21 13:39] VITALS: BP 134/64
--- NOTE | 2024-08-21 13:52 | NUR ---
Reviewed patient d/c paperwork, instructions, and education with pt, pt signed d/c form. Questions answered. Pt states she appreciates everything I, and we, did for her during her stay. Pt called her friend to give her a ride and will use the call light when her friend arrives.
--- NOTE | 2024-08-21 14:30 | OR ---
[facility] [address], [place] [address] Signed DATE OF OPERATION: 08/17/2024 SURGEON: Anshu Molina MD PREOPERATIVE DIAGNOSES: Extensive intraabdominal abscess, possible perforated appendicitis, right lower abdominal inflammatory process. 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 PROCEDURES: 1. Laparoscopy with conversion to laparotomy. 2. Resection of portion of right colon and ileum with end-to-side ileal right colonic anastomosis (prolonged, complicated, and difficult). ANESTHESIA: General endotracheal; Delia Zayda, AIR CONDITIONING TECHNICIAN and postoperative bilateral TAP blocks. INDICATIONS: This 68-year-old white woman is a patient of AMELIA Barry. The patient presents to the emergency room today, having been referred by Phill Huyhn following a CT scan of the abdomen which showed possible abscess in the right lower abdomen with possible perforated appendicitis, though this was uncertain. The patient has had symptoms for over a month and was self-treating with an antibiotic at some point. The patient has a normal white count, no sign of systemic toxicity, but marked tenderness in the right lower abdomen. CT scan that had been performed as an outpatient under the direction of AMELIA Barry, had shown interloop inflammatory changes, possible abscess and question etiology of perforated appendicitis. She has been fluid resuscitated now to undergo drainage of abscess if appropriate, appendectomy as appropriate and other indicated procedures depending on findings. A laparoscopic approach is intended, though an open procedure was well discussed with her. The risks of bleeding, infection, failure of diagnosis, misdiagnosis, need for bowel resection and so forth were all discussed preoperatively. FINDINGS: With relaxation of anesthesia, abdominal palpation revealed a very dense mass in the right lower abdomen. Laparoscopy affirmed an inflammatory process in the right lower quadrant, not specifically well-formed abscess by any means. There is no evidence of carcinomatosis. Conversion to open operation was required, and once undertaken, noted Electronically Signed By: ANSHU MOLINA MD 08/21/24 1430 PATIENT NAME: BERLIN ROSENBAUM OPERATIVE REPORT DATE OF : 51 REPORT #: [id number] PHYSICIAN: ANSHU MOLINA MD PCP: PHILL HUYNH PAC REPORT IS CONFIDENTIAL AND NOT TO BE RELEASED WITHOUT AUTHORIZATION [facility] [address] [place] [id number] Signed were several bowel loops congealed into an inflammatory process including the mesentery which had thickened mesentery with adenopathy. Ultimate treatment involved right partial colectomy with extended ileectomy and primary anastomosis. 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 Of note, a Gram stain of local fluid showed no sign of organisms. DESCRIPTION OF PROCEDURE: The patient was brought to the operating room, given a general endotracheal anesthetic. Preoperative antibiotic Zosyn was given. Sequential compression device stockings were used. After satisfactory general endotracheal anesthesia, a Young catheter was placed. The abdomen was then prepared with a chlorhexidine solution and draped sterilely. An incision was made in the infraumbilical area. Using an open Radha cannula technique, pneumoperitoneum achieved to a level of 14 mmHg of carbon dioxide gas. Intra-abdominal inspection showed no sign of ascites or carcinomatosis. A rock-hard mass had been palpated in the right lower abdomen at the outset of anesthesia upon exam. An epigastric port was placed, and with single hand manipulation, inflammatory adhesions of small bowel loops to the anterior abdominal wall were taken down with blunt dissection. Manipulation of the right lower abdomen showed this dense firm mass to be essentially immobile and quite markedly fixed to the retroperitoneum. It was clear that a laparoscopic approach would be inadequate. On that basis, the trocars were removed, and the infraumbilical incision extended inferiorly to some degree. The abdomen was entered without problem, and palpation revealed a rock-hard mass in the cecal area and bowel loops densely adherent to it. The right colon itself appeared reasonably normal except that portion of the cecum densely adherent to the mass also. The incision was extended a bit, and ultimately, a Bookwalter retractor obtained. Blunt dissection of the inflammatory mass from the lateral aspect in the retroperitoneum was undertaken. Careful breakdown of dense adhesions was undertaken with the finger fracture technique, but the mesentery and small bowel loops were densely adherent to the retroperitoneum, and the plane for dissection was with all due care thankfully causing minimal bleeding. The cecum was ultimately defined from the inflammatory process as was the appendix, which appeared anterior, and the appendix was not free, but extending into the inflammatory fibrotic mass. Whether this was a perforated appendicitis with advanced formation of fibrosis was uncertain. An area of small bowel leading to the conglomeration of bowel loops was ultimately identified. With meticulous care, the inflammatory process and its attendant mesentery, which in fact had thickened mesentery either from inflammation or adenopathy were fully mobilized. It became clear the only reasonable approach was resection of portion of the colon and all of the small bowel and its associated inflammatory issues. The mesentery corresponding to the right colon was incised with electrocautery, excising it widely from the mesenteric adenopathy, extending to the portion of ileum free of Electronically Signed By: ANSHU MOLINA MD 08/21/24 3578 PATIENT NAME: BERLIN ROSENBAUM OPERATIVE REPORT DATE OF : 51 REPORT #: [id number] PHYSICIAN: ANSHU MOLINA MD PCP: PHILL HUYNH PAC REPORT IS CONFIDENTIAL AND NOT TO BE RELEASED WITHOUT AUTHORIZATION [facility] [address], [place] [address] Signed adenopathy as well. The vascular pedicles including the right colic artery and the ileocolic artery were secured with 0 silk ties after application of clamps doubly applied. An 80 mm JOSE stapling device was used to transect the distal-most right colon as well as the ileum noted to be completely viable. The specimen was passed off the table, later examined, and found to have a firm fibrotic process within the substance of it, uncertain if inflammatory or neoplastic. Irrigation was undertaken in the retroperitoneum which was firm and fibrotic, but certainly without injury to retroperitoneal structures. Plans were then made for reanastomosis. The various approaches were considered including a stapled [id number] approach, but it was deemed most optimal to perform a hand-sewn end-to-side ileal right colostomy. The staple line of the colon was oversewn with interrupted 3-0 silk sutures. An end-to-side ileal right colonic anastomosis was undertaken in 2-layer technique of interrupted 3-0 silk suture in the serosal layer, interrupted 3-0 Vicryl in the mucosal layer. Wide patency to the anastomosis was noted, and both segments were completely viable. Mesenteric defect was secured with interrupted 3-0 silk. Irrigation was undertaken, and gloves were changed. Through a right lower quadrant stab incision, a 7 mm flat Sukhjinder drain was placed into the retroperitoneum, extending to the right paracolic gutter. It is secured to the skin with nylon suture and ultimately attached to bulb suction. The omentum was replaced over the abdominal contents. The patient was noted to have two large cysts of the liver on the preoperative CT scan. There was no evidence of carcinomatosis. Closure was undertaken with a running bidirectional #1 PDS suture. Subcutaneous tissue was irrigated, and the skin closed with running subcuticular 3-0 Vicryl. The epigastric trocar site was secured with interrupted 3-0 Vicryl. Steri-Strips were applied as was an Acticoat dressing. The patient tolerated the procedure well, was ultimately extubated and transferred to the recovery room in good condition, having suffered no complication. The operation was extremely prolonged, complicated, and difficult, but was accomplished with great safety. Blood loss was less than 100 mL in aggregate. Sponge, needle, and instrument counts reported as correct x3. Anshu Molina MD /ERICL /[id number] Electronically Signed By: ANSHU MOLINA MD 08/21/24 1430 PATIENT NAME: BERLIN ROSENBAUM OPERATIVE REPORT DATE OF : 51 REPORT #: [id number] PHYSICIAN: ANSHU MOLINA MD PCP: PHILL HUYNH PAC REPORT IS CONFIDENTIAL AND NOT TO BE RELEASED WITHOUT AUTHORIZATION [address] [address] Signed cc: PEPPER [facility]: PHILL HUYNH ~ Electronically Signed By: ANSHU MOLINA MD 08/21/24 1430 PATIENT NAME: BERLIN ROSENBAUM OPERATIVE REPORT DATE OF : 51 REPORT #: [id number] PHYSICIAN: ANSHU MOLINA MD PCP: PHILL HUYNH REPORT IS CONFIDENTIAL AND NOT TO BE RELEASED WITHOUT AUTHORIZATION
== END 2024-08-21 14:15 | disposition home or self-care (01) | DRG 331 ==
LOC: ED 11:08 → MS 11:11 → ED 14:00 → MS 18:13
PROVIDERS: Emergency Medicine; ADMIT Surgery; ATTEND Surgery
PROC: 0DTF0ZZ Resection of Right Large Intestine, Open Approach (ICD-10-PCS; principal; 2024-08-17 14:00)
DX: K35.33 Acute appendicitis with perforation, localized peritonitis, and gangrene, with abscess (principal); H81.09 Meniere's disease, unspecified ear; K58.9 Irritable bowel syndrome, unspecified; Z79.51 Long term (current) use of inhaled steroids; Z79.899 Other long term (current) drug therapy; Z90.89 Acquired absence of other organs
CPT/HCPCS: 00840; 36415; 51798; 76942; 80048; 80053; 83690; 85025; 87070; 87075; 87205; 94667; 94668; 94760; 94762; 94799; A9270; J0131; J1100; J1171; J1650; J1885; J2003; J2405; J2543; J2704; J2795; J3010; J3475; J3490; J7120; J7121; Q0163

== ENCOUNTER 2024-08-27 16:11 | Inpatient (IN) | payer MEDICARE, OTHER ==
[~2024-08-27] VITALS: Ht 175.3 cm; Wt 91.4 kg
[~2024-08-27 16:11] MED LIST changes: +ACETAMINOPHEN500 MG PO; +AMBEREN PO; +B COMPLEX1 EACH PO; +DICYCLOMINE HCL20 MG PO; +DILAUDID2 MG PO; +FIBER0.52 GM PO; +FINASTERIDE5 MG PO; +LUBRICANT OU; +NAPROXEN500 MG PO; +VENTOLIN HFA18 GM INH; +VITAMIN D325 MCG PO; +ZOLPIDEM TARTRAT5 MG PO
--- OUTSIDE RECORDS SUMMARY | 2024-08-27 16:18 | XMS ---
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 Ladan has no Care Guidelines for this patient. Olivia VISIT COUNT (12 MO.) 2 [facility] [facility] TOTAL 2 NOTE: Visits indicate total known visits. ED/C VISIT TRACKING (12 MO.) 08/27/2024 16:11 [facility] [place] TYPE: Emergency COMPLAINT: - POST OP WOUND CHECK 08/17/2024 11:10 [facility] TYPE: Emergency COMPLAINT: - ABDOMINAL PAIN INPATIENT VISIT TRACKING (12 MO.) 08/17/2024 18:13 [facility] TYPE: Medical Surgical COMPLAINT: - INTRA ABDOMINAL ABSCESS DIAGNOSES: - Acquired absence of other organs - Acquired absence of other organs - Acute appendicitis with perforation, localized peritonitis, and gangrene, with abscess - Acute appendicitis with perforation, localized peritonitis, and gangrene, with abscess - Acute appendicitis with perforation, localized peritonitis, and gangrene, without abscess - Anxiety disorder, unspecified - Irritable bowel syndrome without diarrhea - Irritable bowel syndrome without diarrhea - Localized enlarged lymph nodes - shelter (current) use of inhaled steroids - intermediate accountant (current) use of inhaled steroids - Meniere's disease, unspecified ear - Meniere's disease, unspecified ear - Other residential (current) drug therapy - Other computer terminal operator (current) drug therapy - Other specified diseases of intestine - Problems related to living alone - Right lower quadrant pain - Unspecified abdominal pain - Unspecified asthma, uncomplicated [email or web address]
[2024-08-27] MEDS ORDERED: HYDROMORPHONE HC2 MG PO (16:26)
[2024-08-27] MEDS ORDERED: DOXYCYCLINE MO100 MG PO (16:26)
[2024-08-27] MEDS ORDERED: VANCOMYCIN HCL 1 GM in DEXTROSE 5% 250 ML IV ONE (16:45)
[2024-08-27 16:49] LABS: BASOPHILS 0.5 % (0.1-1.2); EOSINOPHILS 1.1 % (0.7-5.8); HEMATOCRIT 35.5 % (34.1-44.9); HEMOGLOBIN 11.8 g/dL (11.2-15.7); LYMPHOCYTES 11.3 % (19.3-51.7); MCHC 33.2 g/dL (32.2-35.5); MCV 96.2 fL (79.4-94.8); MONOCYTES 7.9 % (4.7-12.5); NEUTROPHILS 78.8 % (34.0-71.1); PLATELET COUNT 303 K/uL (182-369); RBC 3.69 M/uL (3.93-5.22)
[2024-08-27] MEDS ORDERED: LACTATED RINGER'S 1,000 ML IV SCH ×3 (17:00→20:00)
[2024-08-27] MEDS ORDERED: metroNIDAZOLE/SODIUM CHLORIDE 500 MG/100 ML PIGGYBACK IV ONE (17:00)
[2024-08-27] MEDS ORDERED: CITALOPRAM HYDROBROMIDE 20 MG TAB PO ONE (17:00)
[2024-08-27 17:08] LABS: ALBUMIN 2.9 g/dL (3.4-5.0); ALBUMIN/GLOBULIN RATIO 0.73 (1.1-2.4); ANION GAP 14.8 (7-21); BILIRUBIN, TOTAL 0.4 mg/dL (0.2-1.0); BUN/CREATININE RATIO 12.79 (6.0-28.6); CALCIUM 9.1 mg/dL (8.5-10.1); CREATININE, SERUM 0.86 mg/dL (0.55-1.02); POTASSIUM 3.8 mmol/L (3.5-5.1); PROTEIN, TOTAL 6.9 g/dL (6.4-8.2)
[2024-08-27 17:11] LABS: LACTIC ACID, BLOOD 1.2 mmol/L (0.4-2.0)
[2024-08-27] MEDS ORDERED: VANCOMYCIN HCL 1,000 MG in DEXTROSE 5% 250 ML IV ONE (17:15)
[2024-08-27 17:23] LABS: PARTIAL THROMBOPLASTIN TIME 29.9 Sec (22.9-41.3)
[2024-08-27 17:24] LABS: INR 1.1 (0.80-1.30); PROTIME 13.8 Sec (11.2-14.2)
[2024-08-27 18:46] VITALS: BP 150/78
--- NOTE | 2024-08-27 19:27 | NUR ---
THIS RN ASSISTED PATIENT GETTING OFF STRETCHER INTO ROOM, PT GOWN SATURATED. AMBULATED TO THE BATHROOM, SEROSAND/PURULENT DRAINAGE PRESENT, PT C/O 3/10 PAIN TO ABDOMEN BUT WHEN IT BURST AND LEAKED STATES THE PAIN/PRESSURE IS NOT BAD NOW. WOUND REMAINS WELL-APPROXIMATED, STERI-STRIPS REMAIN IN PLACE FROM ORIGINIAL SURGERY. ABD PLACED OVER INCISION FOR DRAINAGE AND TAPED AFTER CLEANED UP. PATIENT BACK INTO BED. MD WAS NOTIFIED VIA PHONE CALL, NO NEW ORDERS, WILL BE UP THIS EVENING TO SEE PATIENT.
--- NOTE | 2024-08-27 19:58 | NUR ---
RECEIVED REPORT. PT ALERT, RESTING IN BED. NO NEEDS AT THIS TIME, CALL LIGHT IN REACH
[2024-08-27] MEDS ORDERED: KETOROLAC TROMETHAMINE 30 MG/ML VIAL IV PRN (20:00)
--- NOTE | 2024-08-27 20:10 | NUR ---
VITALS, ASSESSMENT. PT ASKS ABOUT SLEEPIGN MED, WELL HER REGULAR HOME BP MED AND CYMBALTA. NO OTHER NEEDS, CALL LIGHT INREACH
[2024-08-27 20:38] VITALS: BP 126/76
[2024-08-27 20:39] VITALS: BP 126/76
[2024-08-27] MEDS ORDERED: FAMOTIDINE 20 MG/ 2 ML VIAL IV SCH (21:00)
--- NOTE | 2024-08-27 21:00 | NUR ---
PHONECALL WITH DR. MOLINA. OK TO START HOME MEDS INCLUDING CITALOPRAM, BP MEDS. ORDERED PRN MARLYN FOR SLEEP. DELETED DUPLICATE LR AND FLAGYL ORDERS.
[2024-08-27] MEDS ORDERED: ZOLPIDEM TARTRATE 5 MG TAB PO PRN (21:15)
--- NOTE | 2024-08-27 21:40 | NUR ---
PT REQUESTING ASSISTANCE OOB TO BRP, PT UP INDEPENDENTLY WITH LINE ASSIST. PM CARE PROVIDED. PT REPORTED PAIN TO ABDOMEN, REQUESTED TYLENOL. PT PROVIDED WITH 1000MG TYLENOL AND ALSO 5MG AMBIEN FOR SLEEP. LIGHTS NOTED TO NOT BE WORKING, PATIENT PROVIDED OPTION OF ROOM 115, 116 OR 119. PT CHOSE 119 IT IS SIMILAR TO 109. PT AND ALL PERSONAL BELONGINGS MOVED TO 119.
[2024-08-27] MEDS ORDERED: ACETAMINOPHEN 500 MG TAB PO SCH (22:00)
[2024-08-27] MEDS ORDERED: metroNIDAZOLE/SODIUM CHLORIDE 500 MG/100 ML PIGGYBACK IV SCH ×2 (22:00)
--- NOTE | 2024-08-27 22:08 | NUR ---
PT MOVED TO ROOM 119 DUE TO LIGHT NOT WORKING/NOT TURNING OFF. ALL PT BELONGINGS WITH PT AND ACCOUNTED FOR.
--- NOTE | 2024-08-27 22:59 | NUR ---
GIVEN IV ABX AND MEDS. GIVEN PRN TORADOL PER REQUEST. ASSISTED TO BATHROOM. NO OTHER NEEDS, CALL LIGHT IN REACH
[2024-08-28] VITALS (14 sets, daily range): BP systolic 96–136; BP diastolic 58–72
--- NOTE | 2024-08-28 00:29 | NUR ---
PT RESTING IN BED WITH EYES CLOSED, RISE AND FALL OF CHEST OBSERVED. CALL LIGHT IN REACH
--- NOTE | 2024-08-28 02:39 | NUR ---
PATIENT LAYING IN BED. VITAL SIGNS AND I&OS WERE DONE. PATIENTS CALL LIGHT IN REACH AND NO FURTHER NEEDS AT THIS TIME.
--- NOTE | 2024-08-28 02:46 | NUR ---
PT RESTING IN BED WITH EYES CLOSED, RISE AND FALL OF CHEST OBSERVED. CALL LIGHT IN REACH
--- NOTE | 2024-08-28 04:50 | NUR ---
PT ALERT IN BED, NO NEEDS PRESENTLY. CALL LIGHT IN REACH
[2024-08-28 05:30] LABS: BASOPHILS 0.8 % (0.1-1.2); EOSINOPHILS 2.4 % (0.7-5.8); HEMATOCRIT 31.4 % (34.1-44.9); HEMOGLOBIN 10.5 g/dL (11.2-15.7); LYMPHOCYTES 12.5 % (19.3-51.7); MCH 32.2 PG (25.6-32.2); MCHC 33.4 g/dL (32.2-35.5); MCV 96.3 fL (79.4-94.8); MONOCYTES 8.9 % (4.7-12.5); PLATELET COUNT 273 K/uL (182-369); RBC 3.26 M/uL (3.93-5.22)
[2024-08-28] MEDS ORDERED: VANCOMYCIN HCL 1 GM in DEXTROSE 5% 250 ML IV SCH (05:30)
[2024-08-28 05:53] LABS: ALBUMIN 2.3 g/dL (3.4-5.0); ALBUMIN/GLOBULIN RATIO 0.62 (1.1-2.4); ANION GAP 11.6 (7-21); BILIRUBIN, TOTAL 0.4 mg/dL (0.2-1.0); BUN/CREATININE RATIO 15.38 (6.0-28.6); CALCIUM 8.8 mg/dL (8.5-10.1); CREATININE, SERUM 0.65 mg/dL (0.55-1.02); POTASSIUM 3.6 mmol/L (3.5-5.1)
--- NOTE | 2024-08-28 06:09 | NUR ---
GIVEN IV ABX AND TYLENOL. NO OTHER NEEDS MET, CALL LIGHT IN REACH
--- NOTE | 2024-08-28 07:15 | NUR ---
REPORT RECIEVED FROM PIEDAD JOHNSON. IV ABX COMPLETED, THIS RN IN ROOM TO TURN OFF IV ABX. PATIENT WITHOUT ANY NEEDS AT THIS TIME AND JUST REQUESTING TO REST "FOR A LITTLE BIT LONGER THIS MORNING". CALL LIGHT AND PERSONAL BELONGINGS ARE WITHIN REACH. LR INFUSING CONTINUOUS AT 85ML/HR.
--- NOTE | 2024-08-28 07:54 | NUR ---
PATIENT IN BED RESTING WITH WASHCLOTH OVER EYES AT THIS TIME. WHITE BOARD UPDATED. CALL LIGHT IN REACH.
--- NOTE | 2024-08-28 08:20 | NUR ---
PATIENT UP TO BATHROOM, SBA. PATIENT DID PRESURGICAL WIPEDOWN IN BATHROOM INDEPENDENTLY. LINENS CHANGED. NEW GOWN PROVIDED. PATIENT BACK TO BED, SBA. RT IN ROOM TO DO EKG. CALL LIGHT IN REACH. NO FURTHER NEEDS AT THIS TIME
[2024-08-28] MEDS ORDERED: METOPROLOL TARTRATE 25 MG TAB PO SCH (09:00)
[2024-08-28] MEDS ORDERED: VANCOMYCIN PER PHARMACY PROTOCOL IV SCH (09:00)
--- NOTE | 2024-08-28 09:40 | NUR ---
I&O'S CHARTED. SURGERY CREW IN ROOM AT THIS TIME TO TALK WITH PATIENT AND TAKE PATIENT TO SURGERY.
--- NOTE | 2024-08-28 09:45 | NUR ---
SURGERY TEAM ON THE FLOOR TAKING PATIENT TO THE OR
--- NOTE | 2024-08-28 09:47 | NUR ---
medications reconciled by pharmacy
[2024-08-28] MEDS ORDERED: LIDOCAINE HCL 2% 5 ML SDV ONE (09:52)
[2024-08-28] MEDS ORDERED: propofoL 200 MG/20 ML VIAL ONE (09:52)
[2024-08-28] MEDS ORDERED: fentaNYL citrate 100 MCG/2 ML VIAL ONE (09:52)
[2024-08-28] MEDS ORDERED: ACETAMINOPHEN 1,000 MG/100 ML VIAL ONE (09:52)
[2024-08-28] MEDS ORDERED: ondansetron HCL 4 MG/2 ML VIAL ONE (09:52)
[2024-08-28] MEDS ORDERED: droPERidol 5 MG/2 ML VIAL IV PRN (10:30)
[2024-08-28] MEDS ORDERED: IBLOOD GLUCOSE TEST STRIP 1 EA TEST VI PRN (10:30)
[2024-08-28] MEDS ORDERED: PROCHLORPERAZINE EDISYLATE 10 MG/2 ML VIAL IV PRN (10:30)
[2024-08-28] MEDS ORDERED: ondansetron HCL 4 MG/2 ML VIAL IV PRN (10:30)
[2024-08-28] MEDS ORDERED: fentaNYL citrate 50 MCG/ML SDV IV PRN (10:30)
[2024-08-28] MEDS ORDERED: NALOXONE HCL 0.4 MG SYR IV PRN (10:30)
--- NOTE | 2024-08-28 10:37 | NUR ---
PATIENT REMAINS OFF THE FLOOR IN SURGERY
[2024-08-28] MEDS ORDERED: PIPERACILLIN/TAZOBACTAM 4.5 GM in SODIUM CHLORIDE 0.9% 100 ML IV SCH ×2 (10:58→22:00)
--- NOTE | 2024-08-28 11:06 | NUR ---
08/28/24 1106 Tammie Rivera 1032-PT ARRIVES TO PACU, VIA STRETCHER, PT RESPONSIVE TO STIMULI BUT CONTINUES TO REST W/ EYES CLOSED, VSS ON 6L, RR EVEN AND UNLABORED. 1040-PT AWAKENS ON OWN, C/O OF 4/10 ABD PAIN, REQUEST TYLENOL. 1045-PT TITRATED TO RA, VS REMAIN STABLE. 1050-PT GIVEN IV PAIN MEDICATION PER ORDER, SEE EMAR. 1055- AT BEDSIDE TO DISCUSS PROCEDURE FINDINGS AND PLAN OF CARE W/ PT, ALL QUESTIONS ANSWERED. 1100-PT SITTING UP IN BED SIPPING ON WATER, REPORTS PAIN IS IMPROVING. VSS ON RA.
--- NOTE | 2024-08-28 11:20 | NUR ---
PATIENT BACK TO ROOM. REPORT RECIEVED FROM PIEDAD HOFFMAN. PATIENT UP TO BATHROOM VIA 1PR ASSIST AND DENIES ANY DIZZINESS. PATIENT BACK IN BED. VITALS SIGNS TAKEN AND ARE STABLE. LUNCH MENU PROVIDED. CALL LIGHT AND PERSONAL BELONGINGS ARE WITHIN REACH.
[2024-08-28] MEDS ORDERED: PIPERACILLIN/TAZOBACTAM 4.5 GM in SODIUM CHLORIDE 0.9% 100 ML IV ONE (12:00)
--- NOTE | 2024-08-28 12:16 | NUR ---
PATIENT SITTING UP IN BED EATING LUNCH. PATIENT REPORTS PAIN BEING TOLERABLE. IV ABX STARTED AT THIS TIME. PATIENT WITHOUT FURTHER NEEDS. CALL LIGHT AND PERSONAL BELONGINGS ARE WITHIN REACH.
--- NOTE | 2024-08-28 12:51 | NUR ---
VS STABLE. PT DENIES CONCERNS. ATE 100% OF LUNCH TRAY. APPROX 15ML IN WOUND VAC.
--- NOTE | 2024-08-28 13:46 | NUR ---
PATIENT RESTING IN BED WITH HER EYES CLOSED, EVEN AND UNLABORED RESPIRATIONS NOTED. PATIENT EASILY AROUSABLE. VITAL SIGNS TAKEN AND ARE STABLE. PATIENT DENIES ANY PAIN AT THIS TIME. PATIENT WITHOUT FURTHER NEEDS. CALL LIGHT AND PERSONAL BELONGINGS ARE WITHIN REACH.
--- NOTE | 2024-08-28 15:24 | NUR ---
PATIENT REPORTING 5/10 PAIN THAT IS INCREASING. TOO EARLY FOR ORDERED PAIN MEDICATION ON EMAR. DR MOLINA NOTIFIED. WITH TELEPHONE ORDER FOR DILAUDID 4MG PO Q4PRN AND MOTRIN 600MG PO Q6PRN. WITH NO FURTHER ORDERS AT THIS TIME. CALL ENDED.
[2024-08-28] MEDS ORDERED: IBUPROFEN 600 MG TAB PO PRN (15:45)
[2024-08-28] MEDS ORDERED: HYDROmorphone HCL 4 MG TAB PO PRN (15:45)
--- NOTE | 2024-08-28 15:58 | NUR ---
PATIENT MEDICATED PER HILARY. SEBASTIÁN HURTADO IN ROOM TO ASSIST PATIENT UP FOR AMBULATION IN THE HALLS.
[2024-08-28] MEDS ORDERED: DAPTOmycin 500 MG/10 ML VIAL IV SCH (16:00)
--- NOTE | 2024-08-28 16:20 | NUR ---
PATIENT MEDICATED PER EMAR. IV FLUSHED WITH 10ML OF NS, DRESSING INTACT. IV FLUIDS AND ABX INFUSING CONTINUOUS. CPOX AT BEDSIDE. PATIENT WITHOUT FURTHER NEEDS AT THIS TIME. CALL LIGHT AND PERSONAL BELONGINGS ARE WITHIN REACH.
--- NOTE | 2024-08-28 16:47 | NUR ---
PT TOOK TWO LAPS AROUND THE MED SURGE FLOOR, REPORTING NO DIZZINESS, NO INCREASE IN PAIN, AND NO DOUBLE VISION. PT RETURNED TO BED. GOT PT FRESH ICE WATER. CALL LIGHT WITHIN REACH OF PT. PT REPORTED NEEDING NOTHING ELSE AT THIS TIME.
--- NOTE | 2024-08-28 17:40 | NUR ---
PATIENT VISITING WITH FRIEND. PATIENT REPORTING HER "PAIN IS INCREASING AGAIN". FRESH ICE PACK PROVIDED. PATIENT WITHOUT FURTHER NEEDS AT THIS TIME. CALL LIGHT AND PERSONAL BELONGINGS ARE WITHIN REACH.
--- NOTE | 2024-08-28 18:20 | NUR ---
PATIENT DECLINES PRN DOSE OF DILAUDID AT THIS TIME DUE IT MAKING HER SLEEPY AND SHE WOULD "LIKE TO SLEEP AT NIGHT AND NOT DURING THE DAY". PATIENT ASSISTED UP TO THE BATHROOM. IV FLUSHED WITH 10ML OF NS, DRESSING IS INTACT. IV FLUID CONTINUOUSLY INFUSING AT 85ML/HR PER ORDER. PATIENT WITHOUT FURTHER NEEDS AT THIS TIME. CALL LIGHT AND PERSONAL BELONGINGS ARE WITHIN REACH. CPOX AT BEDSIDE.
--- NOTE | 2024-08-28 18:40 | NUR ---
PATIENT SITTING UP IN BED AT THIS TIME. VITALS AND I&O'S DONE AND CHARTED. ORAL CARE SUPPLIES AT SINK, PATIENT DID ORAL CARE WHILE IN BATHROOM. CALL LIGHT IN REACH. NO FURTHER NEEDS AT THIS TIME.
--- NOTE | 2024-08-28 19:16 | NUR ---
RECEIVED REPORT. PT ALERT IN BED, SUPPORTIVE GUESTS IN ROOM. PT EXPRESSES WORRY ABOUT REDNESS SURROUNDING WOUND VAC. EXAMINED WITH DAY SHIFT RN, NO CHANGES REPORTED. AREA OF REDNESS MARKED WITH PEN. COMPARED TO PICTURE ON PT PHONE FROM PREVIOUS NIGHT, REDNESS AND SWELLLING DISTAL FROM THE WOUND SITE HAS IMPROVED SIGNIFICANTLY. NO OTHER NEEDS, CALL LIGHT IN REACH
--- NOTE | 2024-08-28 20:15 | NUR ---
1 PA TO THE BATHROOM MANAGING WOUND VAC AND IV POLE AND BACK TO BED USING WALKER. NO OTHER NEEDS BUT REQUESTED TO HAVE PRIMARY RN COME AND CHECK THE WOUND AND BRING MARKER. RN NOTIFIED. CALL LIGHT AND SIDE TABLE WITHIN REACH.
--- NOTE | 2024-08-28 20:34 | NUR ---
PT EXPRESSES WORRY ABOUT REDNESS/SWELLING AROUND WOUND VAC. AREA MARKED AND PICTURE TAKEN. PT REQUESTS TO CALL DR MOLINA. REDNESS IMPROVED FROM YESTERDAY PRIOR TO SURGERY.
[2024-08-28] MEDS ORDERED: CITALOPRAM HYDROBROMIDE 20 MG TAB PO SCH (21:00)
--- NOTE | 2024-08-28 21:59 | NUR ---
ASSESSMENT, EVENING MEDS. WOUND VAC REDNESS AND SWELLING IMPROVING FROM EARLIER. PT REPORTS PAIN IMPROVED WELL. ASSISTED TO BATHROOM WITH FWW ADN LINE ASSIST. PT DECLINES PAIN MEDICATION CURRENTLY NO OTHER NEEDS, CALL LIGHT IN REACH
--- NOTE | 2024-08-28 22:30 | NUR ---
PT IV INFILTRATED. MARKED AREA, ELEVATED ARM, AND PROVIDED ICE PACK. NEW IV ON R WRIST AFTER 1 UNSUCCESSFUL ATTEMPT ON R FOREARM. HAND HYGIENE PERFORMED. IV ABX ADMINISTERING NOW. RE-ASSESSED PT WOUND VAC SITE, APPLIED ABD PAD OVER AT PT REQUEST. VITALS. NO OTHER NEEDS, CALL LIGHT IN REACH
--- NOTE | 2024-08-28 22:47 | EKG ---
[facility] [address] [facility] [place] [address] Signed Normal sinus rhythm Left axis deviation Abnormal ECG No previous ECGs available Confirmed by Nate Deluna MD () on 08/28/2024 10:47:32 PM Electronically Signed By: NATE DELUNA MD 08/28/24 2247 PATIENT NAME: BERLIN ROSENBAUM Electrocardiogram DATE OF : 51 PHYSICIAN: NATE DELUNA MD REPORT #: [id number] REPORT IS CONFIDENTIAL AND NOT TO BE RELEASED WITHOUT AUTHORIZATION
[2024-08-29] VITALS (8 sets, daily range): BP systolic 114–1127; BP diastolic 63–90
--- NOTE | 2024-08-29 00:28 | NUR ---
PT RESTING IN BED WITH EYES CLOSED, SPO2 94%. RISE AND FALL OF CHEST OBSERVED, CALL LIGHT INREACH
--- NOTE | 2024-08-29 02:21 | NUR ---
VITALS, ASSISTED TO BATHROOM. ASSESSED WOUND VAC, REDNESS AND SWELLING IMPROVING. NO OTHER NEEDS, CALL LGIHT IN REACH
--- NOTE | 2024-08-29 03:40 | NUR ---
PT RESTING WITH EYES CLOSED, RISE AND FALL OF CHEST OBSERVED. CALL LIGHT IN REACH
--- NOTE | 2024-08-29 04:13 | NUR ---
RESPONDED TO ALARMING CPOX. OBSERVED SPO2 DOWN TO 77% DURING APNEA, THEN UP TO 92%. APPLIED 2LNC, SPO2 UP TO 99%. NO OTHER NEEDS, CALL LIGHT IN REACH
--- NOTE | 2024-08-29 05:25 | NUR ---
RESPONDED TO BEEPING IV. ASSISTED PT TO BATHROOM AND BACK TO BED. VITALS, I&OS, AM MEDS. PT RECEIVED JOHN TYLENOL, DECLINES OTHER PAIN MEDS. RE-ASSESSED WOUND VAC, NO MAJOR CHANGE. CALL LIGHT IN REACH
[2024-08-29 05:39] LABS: BASOPHILS 0.7 % (0.1-1.2); EOSINOPHILS 3.3 % (0.7-5.8); HEMATOCRIT 31.3 % (34.1-44.9); HEMOGLOBIN 10.3 g/dL (11.2-15.7); LYMPHOCYTES 13.5 % (19.3-51.7); MCHC 32.9 g/dL (32.2-35.5); MCV 97.2 fL (79.4-94.8); MONOCYTES 6.9 % (4.7-12.5); NEUTROPHILS 75.3 % (34.0-71.1); PLATELET COUNT 260 K/uL (182-369); RBC 3.22 M/uL (3.93-5.22)
--- NOTE | 2024-08-29 07:11 | NUR ---
REPORT FROM ROQUE HERBERT.
--- NOTE | 2024-08-29 07:39 | NUR ---
PATIENT IS SLEEPING WITH REGULAR RESPIRATIONS.
--- NOTE | 2024-08-29 07:54 | NUR ---
MORNING ASSESSMENT IS COMPLETE. PATIENT IS BACK IN BED AFTER GETTING UP TO BATHROOM TO VOID. PATIENT RATES PAIN MINIMAL 2/10 AT REST. WOUNDVAC IS INTACT AND TO SUCTION, DRAINAGE IS SEROSANGUIOUS. DISCUSSION WITH PATIENT THAT WOUNDVAC IS FUNCTIONING PROPERLY TO HELP ALLEVIATE HER ANXIETY. COFFEE PROVIDED AND PATIENT IS GOING TO REST UNTIL BREAKFAST ARRIVES NO OTHER NEEDS AT THIS TIME.
[2024-08-29] MEDS ORDERED: LACTOBACILLUS RHAMNOSUS GG 1 EACH CAP PO SCH (09:00)
[2024-08-29] MEDS ORDERED: FAMOTIDINE 20 MG TAB PO SCH (09:00)
[2024-08-29] MEDS ORDERED: CETIRIZINE HCL 10 MG TAB PO SCH (09:00)
--- NOTE | 2024-08-29 10:16 | NUR ---
IV DAPTO GIVEN. PATIENT UP TO CHAIR. PATIENT RATES ABD PAIN 3/10 AFTER IBUPROFEN.
--- NOTE | 2024-08-29 10:58 | NUR ---
PATIENT UP TO BATHROOM TO . PATIENT HAS AMBULATED IN HALLWAY X3 LAPS TODAY. PATIENT DENIES OTHER NEEDS AT THIS TIME.
--- NOTE | 2024-08-29 11:20 | NUR ---
PT REQUESTED TO GO FOR A WALK. PT AMBULATED WITH WALKER - TWO LAPS AROUND MED SURG. PT STATES SHE IS FEELING GOOD. RETURNED TO ROOM, ASSISTED TO RESTROOM. PT RETURNED TO CHAIR TO READ. PERSONAL BELONGINGS AND CALL LIGHT WITHIN REACH.
--- NOTE | 2024-08-29 11:33 | NUR ---
PATIENT UP TO AMBULATE SEVERAL LAPS IN HALLWAY WITH SBA. PATIENT RATES ABD PAIN MINIMAL 2/10 AFTER IBUPROFIN.
--- NOTE | 2024-08-29 12:42 | NUR ---
CM MET WITH PATIENT REGARDING DISCHARGE PLANNING. PT LIVES ALONE IN 1 STORY HOME WITH HER DOG. THERE ARE 4 STEPS WITH RAILING OFF OF THE BACK PORCH AND3 STEPS INTO GARAGE. SHE DOES HAVE A BASEMENT THAT NEEDS TO BE ACCESSED FROM OUTSIDE THE HOME AND DOES NOT HAVE TO USE THIS ROOM. PRIOR TO ADMISSION PATIENT WAS INDEPENDENT WITH COOKING, DRIVING AND ADLS. SHE WALKS DAILY FOR EXERCISE, USES NO DME OR OUT-PATIENT SERVICES. CM WILL CONTINUE TO FOLLOW ARRANGE WOUND VAC AND REMAIN AVAILABLE FOR ANY ADDITIONAL DISCHARGE NEEDS.
--- NOTE | 2024-08-29 13:28 | NUR ---
Call from Esme from [facility]. Wound Vac has been authorized and they will overnight ship today. It should arrive by tomorrow.
--- NOTE | 2024-08-29 14:01 | NUR ---
PATIENT GIVEN SCEDULED TYLENOL, IV CEFAPIME INFUSING. PATIENT RATES ABD PAIN 1/10. NO OTHER NEEDS.
--- NOTE | 2024-08-29 15:27 | NUR ---
DIET ORDER IS REGULAR, HIGH PROTEIN. PATIENT STATES SHE WASN'T ON A HIGH PROTEIN DIET BEFORE THIS ADMIT. I EXPLAINED DR. MOLINA ORDERED IT PROBABLY TO HELP WITH HEALING OF THE SKIN AND SUCH. SHE STATES SHE THE REGULAR PORTIONS ARE JUST RIGHT, SO DOUBLING PROTEIN AT MEALS MAY NOT WORK BECAUSE SHE MAY NOT BE HUNGRY ENOUGH TO EAT THE EXTRA. SHE IS NOT KEEN ON ENSURE EITHER, BUT I EXPLAINED WE HAVE ENSURE MAX PROTEIN WHICH PROVIDES 30 GM PROTEIN PER CARTON AND ISN'T LOADED WITH SUGAR. SHE SAID SHE IS WILLING TO TRY IT. WILL ADD TO HER BREAKFAST TOMORROW AND ASSESS HOW SHE LIKES IT. SHE DOES LIKE COTTAGE CHEESE AND REGULAR CHEEESE. NO CHEERIOS. THESE PREFERENCES ARE NOTED IN MEAL IQ. RD WILL CONTINUE TO MONITOR.
--- NOTE | 2024-08-29 17:10 | NUR ---
PATIENT GIVEN 30MG OF IV TORADOL FOR 4/10 ABD PAIN. PATIENT IS UP TO CHAIR FOR DINNER.
--- NOTE | 2024-08-29 18:21 | NUR ---
PATIENT UP TO AMBULATE HALLWAYS WITH SBA. PATIENT MADE MORE THAN 3 LAPS. PATIENT BACK TO ROOM. DR. MOLINA IN TO SEE PATIENT. PATIENT MAY HAVE SHOWER TOMORROW. PATIENT IS UP TO CHAIR AND DRINKING HERBAL TEA. NO OTHER NEEDS AT THIS TIME.
--- NOTE | 2024-08-29 18:29 | OR ---
[facility] [address], [place] [address] Signed DATE OF OPERATION: 08/28/2024 SURGEON: Anshu Molina MD PREOPERATIVE DIAGNOSES: 1. History of complex perforated appendicitis with well-formed phlegmonous abscess requiring right partial colectomy (August 17, 2024). 2. Midline incisional cellulitis developing in the past 48 hours with possible subcutaneous abscess. 3. Abdominal obesity. POSTOPERATIVE DIAGNOSES: 1. History of complex perforated appendicitis with well-formed phlegmonous abscess requiring right partial colectomy (August 17, 2024). 2. Midline incisional cellulitis developing in the past 48 hours with large subcutaneous abscess. 3. Abdominal obesity. 4. Wound abscess; fascia intact. PROCEDURES: 1. Incision and drainage of abdominal wound abscess. 2. Placement of wound VAC device. ANESTHESIA: General LMA, Nehemiah Adair CRNA. INDICATIONS: This 68-year-old white woman is a patient of Phill Huynh and was found to have a complex inflammatory process of the right lower abdomen after vague, but unclear symptoms. Her referral to the emergency room resulted in surgical consultation and operative intervention, which include initially laparoscopic evaluation with conversion to an open lower midline incision with right partial colectomy with ileocolonic anastomosis. A dense and firm rubber like process including the mesentery of the ileum and cecum was noted and concerns were maintained for possible neoplastic problem. Final pathology of the resected mass, which included cecum and terminal ileum showed in fact perforated appendicitis. There was no sign of neoplasm. She was in the hospital for a few days after operation on antibiotic combination of Ancef and Flagyl. She was discharged home in good condition, tolerating oral intake and bowel movements, and so forth. She presented to the Urgent Care Clinic, evaluated by Kimo Morales, nurse practitioner Electronically Signed By: ANSHU MOLINA MD 08/29/24 1829 PATIENT NAME: BERLIN ROSENBAUM OPERATIVE REPORT DATE OF : 51 REPORT #: [id number] PHYSICIAN: ANSHU MOLINA MD PCP: PHILL HUYNH PAC REPORT IS CONFIDENTIAL AND NOT TO BE RELEASED WITHOUT AUTHORIZATION [facility] [address], [place] [address] Signed on Thursday (today is Thursday) where she was noted to have increasing pain and erythema of the low midline incision. She was begun on doxycycline antibiotic after discussing this situation, but worsened yesterday (Thursday) and presented to the emergency room where she was found to have increased erythema of the skin, fullness and possible minimal amount of serous drainage. She was directly admitted to the hospital by mn, begun on vancomycin and Flagyl. A CT scan was performed in the emergency room during her evaluation, which showed no sign of intraabdominal process, but did show a fluid collection and inflammatory changes of the subcutaneous space of the incision. She is now taken to the operating room for drainage of this process and possible wound VAC placement. She understands the risk of bleeding, infection, and so forth, wished to proceed. FINDINGS: The wound closure had been obtained by subcutaneous absorbable wound clip device. The wound was essentially completely intact at the skin level. Once opened, however, copious egress of purulent material was noted. Inflammatory changes of the fat was noted as well as granulating subcutaneous fat. The fascia itself was well identified and completely intact. Irrigation was undertaken with Irrisept and a wound VAC applied. DESCRIPTION OF PROCEDURE: The patient was brought to the operating room, given a general LMA type anesthetic. The patient has been on vancomycin and Flagyl antibiotic. The Steri-Strips of the midline incision, which extended just above the umbilicus inferiorly was removed. There was no drainage of fluid at that point. The epigastric port incision had somewhat, but was not involved in the process at all. The abdomen was prepared with a Betadine based solution and draped sterilely. The midline incision was incised with heavy scissors due to the subdermal clips that were in place. Immediately noted inferior to the umbilical area was egress of copious amounts of purulent material. Gram stain and cultures were obtained. The wound was opened fully inferiorly and superiorly allowing for egress of the purulent material. Suction was used and once cleared, one could see the midline fascia that appeared to be completely intact and with a running PDS suture still in place. Once the purulent material was freed, irrigation was undertaken with Irrisept solution 1 L in total. The epigastric skin incision was secured with a single interrupted 2-0 Vicryl suture in a horizontal mattress configuration allowing for drainage if necessary. A wound VAC device was obtained and a medium sponge cut to an elliptical configuration and placed in the wound itself. Measurement of the wound was 15 cm x 4 cm x 4 cm. Electronically Signed By: ANSHU MOLINA MD 08/29/24 1829 PATIENT NAME: BERLIN ROSENBAUM OPERATIVE REPORT DATE OF : 51 REPORT #: [id number] PHYSICIAN: ANSHU MOLINA MD PCP: PHILL HUYNH PAC REPORT IS CONFIDENTIAL AND NOT TO BE RELEASED WITHOUT AUTHORIZATION [address] [address] Signed There is no undermining noted. The wound VAC device was applied to 120 mmHg pressure and appeared to seal well. The patient was ultimately extubated and transferred to the recovery room in good condition having suffered no complication. Blood loss in total was 20 mL. Sponge, needle, and instrument counts were reported as correct x3. MD BLANCA Rivera/CHARLES /[id number] cc: PEPPER Barry FNP Copies: PHILL HUYNH ~ Electronically Signed By: ANSHU MOLINA MD 08/29/24 1829 PATIENT NAME: BERLIN ROSENBAUM OPERATIVE REPORT DATE OF : 51 REPORT #: [id number] PHYSICIAN: ANSHU MOLINA MD PCP: PHILL HUYNH REPORT IS CONFIDENTIAL AND NOT TO BE RELEASED WITHOUT AUTHORIZATION
--- NOTE | 2024-08-29 18:29 | HP ---
[facility] [address] [place], [place] [address] Signed ADMISSION DATE: 08/27/2024 REASON FOR ADMISSION: Wound infection. HISTORY OF PRESENT ILLNESS: This 68-year-old white woman presented to the emergency room on August 17, 2024, with a finding on an outpatient CT scan showing a complex inflammatory mass in the right lower abdomen. She underwent laparoscopy with conversion to open laparotomy and was found to be a very dense mass, initially thought possibly related to a neoplasm, but also considered for possible severe and advanced perforated appendicitis. Resection of portion of the right colon and ileum was accomplished with primary anastomosis. Cultures obtained at the time of the procedure showed Strep intermedius, susceptibility tests were not performed on this particular organism. Her pathology report ultimately confirmed in fact that she did have a perforated appendicitis with a complex inflammatory mass that was well formed and without malignancy. w She was discharged home a few days ago, doing quite well, having good bowel function and wound healing well. She presented to an Urgent Care and seen by Dr. Kimo Morales, nurse practitioner, who coordinated with me showing a photo with erythematous changes of the wound. She was empirically placed on doxycycline orally on the possibility of an early cellulitic wound infection with MRSA. She presented to the emergency room late in the day today and evaluated thoroughly by Dr. Subramanian showing increased erythema of the wound and some tenderness. The patient has an impressively high pain threshold that is noted. Coordination with the emergency room physician was undertaken. She did undergo a CT scan of the abdomen under the direction of Dr. Subramanian which showed an amorphous change in her relatively thick abdominal wall pannus in the region of the incision, possibly a fluid collection. The midline fascia appeared to be intact and intraabdominal contents were uninvolved by any process. I have admitted her for further evaluation and care to include IV antibiotics, wound care, and possible operative drainage as necessary. The patient denies any fever or chills, only increasing pain in the wound. LABORATORY STUDIES: Showed a white count of 12.46, hematocrit of 35.5. Chem profile, which was essentially normal, although albumin is 2.9. Coag studies are normal. INR of 1.10. Electronically Signed By: ANSHU MOLINA MD 08/29/24 1829 PATIENT NAME: BERLIN ROSENBAUM HISTORY AND PHYSICAL DATE OF : 51 REPORT #: [id number] PHYSICIAN: ANSHU MOLINA MD PCP: PHILL PEDRAZA PAC REPORT IS CONFIDENTIAL AND NOT TO BE RELEASED WITHOUT AUTHORIZATION [facility] [address] [place], [place] [address] Signed PHYSICAL EXAMINATION: GENERAL: Alert and oriented and tearful as usual. VITAL SIGNS: Temperature is 98.6, pulse 69, blood pressure 139/82. HEENT: Trachea is midline. CHEST: Shows normal respiratory excursion. Pulses regular. ABDOMEN: Relatively scaphoid, but intense erythema is noted of the skin. Steri-Strips are in place. There is firmness to the wound. There was some drainage of serous fluid noted when the patient got into bed. EXTREMITIES: Show no clubbing, cyanosis, or edema. CT scan was reviewed in detail with findings noted as above. Lab studies also as noted above. ASSESSMENT: The patient certainly has a postoperative wound infection, related to her complex perforated appendicitis. IV antibiotics, Flagyl and vancomycin, are initiated at this time. Consideration is made for operative drainage of the wound as it is relatively tightly together. However, she ate peaches not too long ago. Under the circumstances, I would have her undergo on continuous IV antibiotics and consider for operative wound drainage tomorrow. She may require a wound VAC for more expedient healing. At present, the fascial layer appears to be intact. There is no sign of intraabdominal component to this issue, and I believe with appropriate antibiotics and wound care, this will be able to be healed up promptly. Discussed all this with her. She understands and agrees. MD BLANCA Rivera/ERICL /[id number] cc: Kimo Owensid Electronically Signed By: ANSHU MOLINA MD 08/29/24 1829 PATIENT NAME: BERLIN ROSENBAUM HISTORY AND PHYSICAL DATE OF : 51 REPORT #: [id number] PHYSICIAN: ANSHU MOLINA MD PCP: PHILL PEDRAZA PAC REPORT IS CONFIDENTIAL AND NOT TO BE RELEASED WITHOUT AUTHORIZATION [facility] [address] [facility] [place], [place] [address] Signed Copies: ~ Electronically Signed By: ANSHU MOLINA MD 08/29/24 1829 PATIENT NAME: BERLIN ROSENBAUM HISTORY AND PHYSICAL DATE OF : 51 REPORT #: [id number] PHYSICIAN: ANSHU MOLINA MD PCP: PHILL PEDRAZA PAC REPORT IS CONFIDENTIAL AND NOT TO BE RELEASED WITHOUT AUTHORIZATION
--- NOTE | 2024-08-29 19:40 | NUR ---
RECEIVED REPORT. PT ALERT, UP IN CHAIR. ASSISTED TO BATHROOM THEN BACK TO BED. REFRESHED WATER. FRIEND IN ROOM WITH PT. CALL LIGHT IN REACH
--- NOTE | 2024-08-29 21:20 | NUR ---
VITALS, ASSESSMENT, EVENING MEDS. PT REQUESTS 2MG DILAUDID AND MOTRIN FOR 6/10 ABD PAIN. SHE NOTES IT IS SORE AFTER SHE WALKED SEVERAL LAPS TODAY. DECLINES AMBIEN FOR NOW, MAY REQUEST LATER. NO OTHER NEEDS, CALL LIGHT IN REACH
--- NOTE | 2024-08-29 23:44 | NUR ---
PT RESTING IN BED, EYES CLOSED, RISE AND FALL OF CHEST OBSERVED. CALL LIGHT IN REACH
[2024-08-30] VITALS (8 sets, daily range): BP systolic 105–139; BP diastolic 61–70
--- NOTE | 2024-08-30 01:20 | NUR ---
PT RESTING WITH EYES CLOSED, RISE AND FALL OF CHEST OBSERVED. CALL LIGHT IN REACH
--- NOTE | 2024-08-30 02:06 | NUR ---
PT RESTING WITH EYES CLOSED, RISE AND FALL OF CHEST NOTED. CALL LGIHT IN REACH
--- NOTE | 2024-08-30 03:25 | NUR ---
ENTERED ROOM, PT UP TO BATHROOM WITH NECK BAND SETTER. GIVEN 2MG PO DILAUDID PER PT REQUEST FOR 5/10 PAIN. REASSESSED WOUNDVAC, VERY WELL APPEARING WITH DECREASING REDNESS/SWELLING. NO OTHER NEEDS, CALL LIGHT IN REACH
--- NOTE | 2024-08-30 05:21 | NUR ---
PT RESTING WITH EYES CLOSED, RISE AND FALL OF CHEST OBSERVED. CALL LIGHT IN REACH
--- NOTE | 2024-08-30 06:02 | NUR ---
Assisted pt to bathroom and back to bed. Vitals, I&Os. Given AM meds and refreshed water. no other needs, call light in reach
--- NOTE | 2024-08-30 07:34 | NUR ---
REPORT RECEIVED FROM PIEDAD JOHNSON. PT DID HAVE ANOTHER LOOSE STOOL LAST NIGHT BUT NORMAL FOR HER DUE TO IBS.
--- NOTE | 2024-08-30 08:31 | NUR ---
PT UP TO CHAIR WITH WEATHERCASTER. EATING BREAKFAST. ENJOYIN THE DOUBLE HELPING OF EGGS, HAS CONCERNS ABOUT OTHER OPTIONS ON TRAY. PLAN TO SHOWER MID MORNING AFTER HER MORNING BM. CALL LIGHT IN REACH.
--- NOTE | 2024-08-30 08:49 | NUR ---
RETRO UR CLINICAL REVIEW: 2 MN FOR VERSALUS-PER BOILER ASSISTANT OPERATOR MEETS INPT FOR CELLULITIS WITH NEED FOR SURGICAL PROCEDURE AND WOUND VAC MEDICARE OBS TO INPT 08/30/24 @ 0732 NO AUTH REQUIRED PER MEDICARE GUIDELINES DISCHARGE TO HOME PENDING DELIVERY OF OUTPATIENT WOUND VAC. ANTICIPATE DC TODAY
--- NOTE | 2024-08-30 09:31 | NUR ---
UP RECLINER, ALERT AND ORIENTED. UPDATED THAT WOUND VAC IS NOT YET IN FACILITY FOR DC TO HOME. INFORMED HER THAT SHE WILL LIKELY NEED OUTPATIENT WOUND CARE. WARM BLANKET PROVIDED. DISCUSSED DIETARY COMMENT, SHE IS UNHAPPY WITH WORDING IN COMMENT SECTION. UPDATED NURSING STAFF, THEY ARE FIXING THE ORDERS.
--- NOTE | 2024-08-30 09:39 | NUR ---
PT REQUESTED RN TO LOOK AT STOOL. WAS GREEN AND SHE ATE [employer] YESTERDAY. UO AND STOOL OUTPUT GOOD. PT BASICALLY IND IN ROOM. SITTING UP IN CHAIR READING BOOK.
--- NOTE | 2024-08-30 10:48 | NUR ---
WOUND VAC ARRIVES. Davian THOMAS, RN/CM, NOTIFIED DR. MOLINA OF WOUND VAC ARRIVAL.
--- NOTE | 2024-08-30 11:06 | NUR ---
IV SITE WRAPPED AND TAPED. PATIENT SHOWERED INDEPENDENTLY WITH SET UP ASSISTANCE ONLY.
--- NOTE | 2024-08-30 11:12 | NUR ---
PT OUT OF SHOWER AND HOOKED BACK UP TO IVF. PT BACK IN CHAIR. DRESSING REMAINS INTACT.
--- NOTE | 2024-08-30 11:30 | NUR ---
WOUND VAC DELIVERED TO PATIENT ROOM, NURSES UPDATED.
--- NOTE | 2024-08-30 12:49 | NUR ---
CALLED LAB FOR CULTURES FROM 08-28-24. LAB SAID NOTHING HAS COME BACK EXCEPT THE GRAM STAIN. GRAM STAIN PLACED ON FRONT OF CHART.
--- NOTE | 2024-08-30 13:05 | NUR ---
ORDERS FOR OUTPATIENT DRESSING CHANGES FAXED TO [facility]
--- NOTE | 2024-08-30 13:17 | NUR ---
PT CALLED FOR PAIN MEDICATIONS. GIVEN TYLENOL. HAS FRIEND IN ROOM.
--- NOTE | 2024-08-30 13:34 | NUR ---
PATIENT HAD THE ENSURE MAX PROTEIN DRINK SNACK THIS MORNING. SHE LIKED IT OK. SHE IS AGREEABLE TO DRINK 1 A DAY FOR AN ADDITIONAL 30 GM OF PROTEIN. WILL HAVE DIETARY SEND IT ON HER BREAKFAST TRAY DAILY. ALSO EXPLAINED THAT IF SHE WANTS ANOTHER ONE DURING THE DAY, SHE CAN ASK HER NURSE BECAUSE THEY HAVE THEM IN THEIR PAN[place]. PATIENT HAS GOOD UNDERSTANDING AND APPRECIATED MY HELP. PATIENT AT LOW NUTRITION RISK. F/U IN 7 TO 10 DAYS OR NEEDED.
--- NOTE | 2024-08-30 16:03 | NUR ---
Patient used call light to request medication for pain. Patient does not want dilaudid at this time. PRN Motrin given per EMAR for 5/10 abdominal pain. Denies other needs or concerns at this time. Call light in reach.
--- NOTE | 2024-08-30 16:40 | NUR ---
ACCOMPANIED PT FOR A WALK TO THE FRONT OF THE HOSPITAL AND BACK. TOLERATED ACTIVITY VERY WELL. PT STATES SHE HAS BEEN GETTING QUITE BORED AND APPRECIATED THE WALK. PT RETURNED TO ROOM, ICE WATER REFRESHED. PT RELAXING IN BED READING HER BOOK. DENIES ANY CONCERNS OR NEEDS AT THIS TIME. CALL LIGHT WITHIN REACH.
--- NOTE | 2024-08-30 19:33 | NUR ---
RECEIVED REPORT. PT IN BATHROOM. RELIEVED FASTENER SEWING MACHINE OPERATOR, AND ASSISTED PT BACK TO BED. PT C/O MILD ABD PAIN. TYLENOL AND MOTRIN NOT AVAILABLE, PT DECLINES DILADID OR ICE PACK. PROVIDED TEA PER REQUEST. NO OTHER NEEDS, CALL LIGHT INREACH
--- NOTE | 2024-08-30 21:37 | NUR ---
VITALS, ASSESSMENTS, EVENING MEDS. NO OTHER NEEDS, CALL LIGHT IN REACH
--- NOTE | 2024-08-30 22:45 | NUR ---
PT RESTING IN BED WITH EYES CLOSED, RISE AND FALL OF CHEST OBSERVED, CALL LIGHT INREACH
--- NOTE | 2024-08-30 23:26 | NUR ---
PT RESTING IN BED WITH EYES CLOSED, RISE AND FALL OF CHEST OBSERVED, CALL LIGHT IN REACH
--- NOTE | 2024-08-31 01:05 | NUR ---
PT RESTING IN BED WITH EYES CLOSED, RISE AND FALL OF CHEST OBSERVED, CALL LIGHT IN REACH
--- NOTE | 2024-08-31 02:01 | NUR ---
RESPONDED TO BEEPING IV, REMOVED AIR BUBBLE. PT ALERT, THOUGH SLEEPY, QUICKLY RETURNS TO SLEEP WIHT EVEN, UNLABORED RESPERS. NO NEEDS, CALL LIGHT IN REACH
--- NOTE | 2024-08-31 03:47 | NUR ---
RESPONDED TO BEEPING IV. REPLACED FLUIDS AND GIVEN PRN MOTRIN FOR 4/10 PAIN. NO OTHER NEEDS, CALL CARR[place] LEO
[2024-08-31 05:46] VITALS: BP 135/67
[2024-08-31 05:48] VITALS: BP 135/67
--- NOTE | 2024-08-31 05:57 | NUR ---
VITALS, AM MEDS. FURNACE MECHANIC HELPER ASSISTED TO BATHROOM. CALL LIGHT INREACH
--- NOTE | 2024-08-31 07:30 | NUR ---
REPORT RECEIVED FROM PIEDAD JOHNSON. PATIENT WAKES WHEN THIS RN ENTERS AND REQUESTS TO USE THE BEDSIDE COMMODE. PATIENT TRANSFERS WITH SUPERVISION ONLY, PROVIDES HER OWN JAZMYN-CARE, AND TRANSFERS BACK TO BED. NO REQUESTS, CALL LIGHT AND PERSONAL BELONGINGS IN REACH.
[2024-08-31 08:02] VITALS: BP 135/78
--- NOTE | 2024-08-31 08:25 | NUR ---
MEDICATION ADMINISTERED, SEE MAR. ASSESSMENT COMPLETE. PATIENT IS RESTING IN BED AND REPORTS SHE IS HUNGRY AND WAITING FOR BREAKFAST. RATES HER ABDOMINAL PAIN A 1/10 AT THIS TIME. WOUND VAC REMAINS IN PLACE WITH SUCTION, SS NOTED IN SUCTION CANNISTER. BOWEL TONES ARE ACTIVE IN ALL QUADRANTS, PATIENT DENIES NAUSEA OR STOMACH UPSET. PATIENT EXPRESSES CONCERNS REGARDING HER PRESCRIPTIONS AND GOING HOME SHE REPORTS IT TOOK THREE DAYS FOR HER TO GET HER MEDCATIONS LAST TIME SHE DISCHARGED. PATENT IS OTHERWISE LOOKING FORWARD TO GOING HOME. NO OTHER REQUESTS, CALL LIGHT AND PERSONAL BELONGINGS IN REACH.
[2024-08-31 09:52] VITALS: BP 130/69
--- NOTE | 2024-08-31 10:43 | NUR ---
WOUND VAC REMOVED ORDERED BY DR MOLINA. FOAM LOOSENED WITH STERILE SALINE AND TWEEZERS. PATIENT TOLERATES WELL WITH MINIMAL PAIN. WOUND BED RED AND BEEFY, DR MOLINA STATES HE IS PLEASED. JAZMYN-WOUND CLEANSED WITH NORMAL SALINE, SKIN-PREP APPLIED AND ALLOWED TO DRY. MIDLINE WOUND OUTLINED WITH OPSITE, FOAM CUT TO SIZE AND PLACED IN WOUND. OPSITE TO ENTIRE WOUND SITE/FOAM. SMALL INCISION MADE TO OPSITE OVER FOAM AND FOAM, WOUND VAC APPLIED. WOUND VAC SUCTION TO 125. WOUND VAC PLACED IN CARRY POUCH AND HUNG ON FWW. PATIENT TOLERATES ENTIRE PROCEDURE WELL. TORRI LOWERY ASSISTS IN DISTRACTING PATIENT. PATIENT ALSO HAS VISITOR PRESENT IN ROOM THROUGHOUT TO TAKE PICTURES OF HER WOUND PER PATIENT'S REQUEST. PATIENT HAS NO REQUESTS AT THIS TIME, CALL LIGHT AND PERSONAL BELONGINGS IN REACH.
--- NOTE | 2024-08-31 10:47 | NUR ---
SPOKE WITH PATIENT. PLANNING TO DC TO HOME TODAY. INFORMED OF APPOINTMENT FOR THURSDAY FOR WOUND CARE AND INFORMED HER IT WILL BE ON DISCHARGE INSTRUCTIONS. DENIES OTHER CM NEEDS AT THIS TIME.
[2024-08-31 11:07] VITALS: BP 130/69
--- NOTE | 2024-08-31 11:17 | NUR ---
PATIENT WAS OFFERED A SHOWER BEFORE DISCHARGE AND REFUSED. PIEDAD BOUDREAUX NOTIFIED. PATIENT GOT DRESSED INDEPENDENTLY. FRIENDS IN THE ROOM VISITING. PATIENT INSTRUCTED TO CALL IF HELP WAS NEEDED.
--- NOTE | 2024-09-01 15:53 | DS ---
[facility] [address] [place] [place] [address] Signed ADMISSION DATE: 08/30/2024 DISCHARGE DATE: 08/31/2024 REASON FOR ADMISSION: This 68-year-old white woman presented to emergency room on August 17, 2024, with finding on outpatient CT scan showing a complex inflammatory mass in the right lower abdomen. She underwent laparoscopy with conversion to open laparotomy and was found to have a very dense mass initially thought possibly related to neoplasm. She underwent segmental resection of a portion of colon and small bowel. Cultures of the peritoneal fluid showed Strep intermedius, susceptic tests were not performed. A primary anastomosis was undertaken. She was discharged to home a few days later, doing quite well, having good bowel function and so on. She presented to the Urgent Care Clinic and was seen by BUCKY Herron, who coordinated with me a photo showing erythematous changes of the wound. She was empirically placed on doxycycline orally with the possibility of an MRSA infection. She presented to the emergency room late in the day 08/27/2024 a day after Urgent Care evaluation showing increased erythema of the wound and tenderness. A CT scan was performed under the direction of emergency room physician, Dr. Subramanian, which showed an amorphous change of the relatively thick abdominal wall pannus and possible fluid collection. On that basis, she was admitted for further evaluation and care. The patient has had no fever, chills, or other abnormality other than increasing pain of the wound. PERTINENT PHYSICAL EXAMINATION: GENERAL: Showed a pleasant white woman who looks to be well and not systemically toxic. NECK: Trachea is midline. CHEST: Clear. HEART: Regular without murmur. ABDOMEN: Soft and nondistended. She did have erythema of the wound edges. The midline incision was extremely well approximated, although there is trace of serous fluid egress from it. LABORATORY STUDIES: Showed a white count of 12.4, hematocrit 35.5. Chem profile normal. Albumin 2.9. Coags normal. HOSPITAL COURSE: The patient was begun on empiric antibiotic therapy including Cubicin and piperacillin. On August 28, 2024, she underwent anesthesia with opening of the wound where she was found Electronically Signed By: ANSHU MOLINA MD 09/01/24 1553 PATIENT NAME: BERLIN ROSENBAUM DISCHARGE SUMMARY DATE OF : 51 REPORT #: [id number] PHYSICIAN: ANSHU MOLINA MD PCP: PHILL PEDRAZA PAC REPORT IS CONFIDENTIAL AND NOT TO BE RELEASED WITHOUT AUTHORIZATION [facility] [address] [place], [place] [address] Signed to have copious amounts of thick purulent fluid. Gram stains and cultures were obtained though showing gram-positive cocci, but cultures negative three days after the procedure. A wound VAC dressing was applied. The deep fascia appeared to be intact with closure of suture. Irrigation was undertaken with Irrisept antiseptic wash. Her postoperative course was rather unremarkable. Wound VAC was very effective in draining exudate from the wound. Her wound VAC was changed today of discharge August 31, 2024 showing good granulation. No sign of necrotic tissue and healing quite well overall. It is anticipated she will undergo wound VAC dressing change two days from now on Thursday. I will review the wound at that time. My goal is limited amount of wound VAC dressing time to allow for optimal granulation and delayed primary closure of the wound itself. The patient has underlying irritable bowel syndrome and as noted increased diarrhea from her baseline. Discontinuance of broad-spectrum antibiotics is appropriate at this point. She still has doxycycline, which may be reasonable to take in addition to her probiotic she additionally takes at home. Additionally, she is free to use loperamide to control her symptoms as necessary. DISCHARGE MEDICATIONS: 1. Escitalopram 20 mg p.o. daily. 2. Metoprolol 25 mg extended release p.o. daily. 3. Finasteride 5 mg half tab p.o. daily for "hair loss.". 4. Vitamin D3 25 mcg p.o. daily. 5. Vitamin B complex one tablet p.o. daily. 6. Metamucil 1 g p.o. daily. 7. Zolpidem 5 mg p.o. as needed for sleep. 8. Dicyclomine 20 mg p.o. t.i.d. as needed for stomach cramps. 9. Naprosyn 500 mg p.o. b.i.d. as needed for pain. 10. Albuterol inhaler two puffs q.4 hours as needed for wheezing. 11. Propylene glycol eye drops as needed three times a day for dry eyes. 12. Tylenol 500 mg two tablets p.o. q.6 hours as needed for pain. 13. Dilaudid 2-4 mg p.o. q.4 hours as needed for pain from prior prescription. DISCHARGE DIAGNOSES: 1. Postoperative subcutaneous wound infection, status post wound evacuation and application of wound VAC. 2. History of advanced and severe perforated appendicitis with abscess and phlegmon, status post right partial colectomy with ileectomy and primary anastomosis. 3. Irritable bowel syndrome. Electronically Signed By: ANSHU MOLINA MD 09/01/24 1553 PATIENT NAME: BERLIN ROSENBAUM DISCHARGE SUMMARY DATE OF : 51 REPORT #: [id number] PHYSICIAN: ANSHU MOLINA MD PCP: PHILL PEDRAZA PAC REPORT IS CONFIDENTIAL AND NOT TO BE RELEASED WITHOUT AUTHORIZATION [address] [place] [address] Signed 4. Anxiety disorder. MD BLANCA Rivera/CHARLES /[id number] cc: PEPPER Barry FNP Copies: PHILL PEDRAZA ~ Electronically Signed By: ANSHU MOLINA MD 09/01/24 1553 PATIENT NAME: BERLIN ROSENBAUM DISCHARGE SUMMARY DATE OF : 51 REPORT #: [id number] PHYSICIAN: ANSHU MOLINA MD PCP: PHILL PEDRAZA REPORT IS CONFIDENTIAL AND NOT TO BE RELEASED WITHOUT AUTHORIZATION
== END 2024-08-31 11:40 | disposition home or self-care (01) | DRG 863 ==
LOC: ED 16:11 → MS 16:12
PROVIDERS: Emergency Medicine; ADMIT Surgery; ATTEND Surgery
DX: T81.41XA Infection following a procedure, superficial incisional surgical site, initial encounter (principal); K58.0 Irritable bowel syndrome with diarrhea; H81.09 Meniere's disease, unspecified ear; F41.9 Anxiety disorder, unspecified; Z79.891 Long term (current) use of opiate analgesic; Z79.899 Other long term (current) drug therapy; Z90.49 Acquired absence of other specified parts of digestive tract; Z87.19 Personal history of other diseases of the digestive system; Y83.2 Surgical operation with anastomosis, bypass or graft as the cause of abnormal reaction of the patient, or of later complication, without mention of misadventure at the time of the procedure
CPT/HCPCS: 00400; 36415; 74177; 80053; 83605; 85025; 85610; 85730; 87205; 93005; 93010; 94762; A9270; J0131; J0878; J1885; J2003; J2405; J2543; J2704; J3010; J3370; J7060; J7121; Q9967

== ENCOUNTER 2024-09-22 11:50 | Day surgery (SDC) | payer MEDICARE, OTHER ==
--- NOTE | ~2024-09-22 | OR ---
[facility] [address] [place], [place] [address] Draft DATE OF OPERATION: 09/22/2024 SURGEON: Anshu Molina MD PREOPERATIVE DIAGNOSES: 1. History of perforated appendicitis with complex ileocecal phlegmon and abscess, status post right partial colectomy. 2. History of wound infection, status post wound VAC therapy. POSTOPERATIVE DIAGNOSES: 1. History of perforated appendicitis with complex ileocecal phlegmon and abscess, status post right partial colectomy. 2. History of wound infection, status post wound VAC therapy. PROCEDURE: Delayed primary closure of abdominal midline wound 10 cm. ANESTHESIA: Local with monitored anesthesia care Salo Adair CRNA and 3 mL local 0.25% Marcaine with epinephrine. INDICATION: This 68-year-old white woman is a patient of AMELIA Barry. She underwent resection of right lower abdominal inflammatory phlegmon related to perforated appendicitis, which initially appeared to possibly be a malignancy. She developed a wound infection requiring drainage. A wound VAC had been applied and she has been undergoing wound VAC dressing changes as appropriate on a twice a week basis. She now has adequate granulation, complete resolution of any infection and now to undergo delayed primary closure of the wound. The wound itself was approximately 10 cm in size. She understands the risk of wound closure including but not limited to bleeding, infection, and so forth. The patient does not feel she could tolerate such a wound closure in an office setting with local anesthesia alone. FINDINGS: Excellent granulation was noted. The wound was measured at 10.0 cm. It was closed without problem with interrupted 3-0 nylon suture in horizontal mattress configuration. DESCRIPTION OF PROCEDURE: The patient was brought to the operating room and given intravenous sedation. The abdomen was prepared with Betadine based solution and draped sterilely. This was after PATIENT NAME: BERLIN ROSENBAUM OPERATIVE REPORT DATE OF : 51 REPORT #: [id number] PHYSICIAN: ANSHU MOLINA MD PCP: SHANIQUE HUYNH REPORT IS CONFIDENTIAL AND NOT TO BE RELEASED WITHOUT AUTHORIZATION [facility] [address] [place], [place] [address] Draft of course removal of the wound VAC device. Once completely prepped and sterilely draped, 3 mL of 0.25% Marcaine with epinephrine was injected along the wound edges. The wound was then closed with interrupted 3-0 nylon suture in an interrupted configuration throughout. Excellent apposition of the skin and soft tissue was accomplished. An Acticoat dressing was applied. She tolerated the procedure well. MD BLANCA Rivera/MODL /[id number] cc: Shanique Huynh PA-C Copies: SHANIQUE HUYNH ~ PATIENT NAME: BERLIN ROSENBAUM OPERATIVE REPORT DATE OF : 51 REPORT #: [id number] PHYSICIAN: ANSHU MOLINA MD PCP: SHANIQUE HUYNH PAC REPORT IS CONFIDENTIAL AND NOT TO BE RELEASED WITHOUT AUTHORIZATION
[~2024-09-22 11:50] MED LIST changes: +CEFAZOLIN SODIUM 2 GM/20 ML SYR IV SCH; +DOXYCYCLINE MO100 MG PO; +HYDROMORPHONE HC2 MG PO; +IBLOOD GLUCOSE TEST STRIP 1 EA TEST VI PRN; +LACTATED RINGER'S 1,000 ML IV SCH; +LIDOCAINE HCL 1% 5 ML SDV INJ ONE; -SEVOFLURANE 250 ML BTL INH ONE
[2024-09-22 12:19] VITALS: BP 119/66
[2024-09-22] MEDS ORDERED: DAILY VALUE1 EACH PO (12:35)
[2024-09-22] MEDS ORDERED: LIDOCAINE HCL 2% 5 ML SDV ONE (15:25)
[2024-09-22] MEDS ORDERED: NALOXONE HCL 0.4 MG SYR IV PRN ×2 (16:45→17:15)
[2024-09-22] MEDS ORDERED: PROCHLORPERAZINE EDISYLATE 10 MG/2 ML VIAL IV PRN (16:45)
[2024-09-22] MEDS ORDERED: HYDROmorphone HCL 1 MG/ML SYR IV PRN (16:45)
[2024-09-22] MEDS ORDERED: fentaNYL citrate 50 MCG/ML SDV IV PRN (16:45)
[2024-09-22] MEDS ORDERED: IBLOOD GLUCOSE TEST STRIP 1 EA TEST VI PRN (16:45)
[2024-09-22] MEDS ORDERED: KETOROLAC TROMETHAMINE 30 MG/ML VIAL ONE (16:46)
[2024-09-22] MEDS ORDERED: ACETAMINOPHEN500 MG PO (17:04)
--- NOTE | 2024-09-22 17:10 | NUR ---
09/22/24 1710 Sandy Lacy 1656 PT ARRIVED TO PACU ON 6L ON MASK, VSS. PT WAKES AND DENIES CONCERNS. DEEP BREATHING ENCOURAGED. 1702 O2 REMOVED AND HOB INCREASED. PT REPORTS WANTING WATER AND DENIES NAUSEA AND PAIN. 1709 MD AT BEDSIDE AND ALL QUESTIONS ANSWERED. 1710 PT SIPPING WATER, HOB INCREASED.
[2024-09-22] MEDS ORDERED: IBUPROFEN 600 MG TAB PO PRN (17:15)
[2024-09-22] MEDS ORDERED: ACETAMINOPHEN 500 MG TAB PO PRN (17:15)
[2024-09-22] MEDS ORDERED: LACTATED RINGER'S 1,000 ML IV SCH (17:15)
[2024-09-22 18:07] VITALS: BP 109/64
== END 2024-09-22 17:52 | disposition home or self-care (01) ==
LOC: DS 11:50
PROVIDERS: ATTEND Surgery
PROC: 0WQFXZZ Repair Abdominal Wall, External Approach (ICD-10-PCS; principal; 2024-09-22 14:55)
DX: Z48.1 Encounter for planned postprocedural wound closure (principal)
CPT/HCPCS: 00400; A9270; J0690; J1885; J2003; J2704; J7121

== ENCOUNTER 2024-11-11 08:17 | Day surgery (SDC) | payer MEDICARE, OTHER ==
[~2024-11-11] VITALS: Ht 175.3 cm; Wt 88.1 kg
[~2024-11-11 08:17] MED LIST changes: -CEFAZOLIN SODIUM 2 GM/20 ML SYR IV SCH; +CYCLOSPORINE1 EACH OP; +DAILY VALUE1 EACH PO; +MIDAZOLAM HCL 5 MG/5 ML VIAL IV PRN; +fentaNYL citrate 100 MCG/2 ML VIAL IV PRN
[2024-11-11 08:34] VITALS: BP 133/78
[2024-11-11] MEDS ORDERED: MIDAZOLAM HCL 5 MG/5 ML VIAL ONE (09:08)
[2024-11-11] MEDS ORDERED: fentaNYL citrate 100 MCG/2 ML VIAL ONE (09:08)
--- NOTE | 2024-11-11 10:07 | NUR ---
11/11/24 1007 Sheets,Sandy 1000 PT ARRIVED TO PACU ON 3L VIA NC, PT WAKES EASILY AND DENIES CONCERNS. VSS. PT PASSING GAS AND ENCOURAGED TO DO SO. 1003 O2 TURNED OFF.
[2024-11-11 10:48] VITALS: BP 146/79
--- NOTE | 2024-11-11 12:45 | OR ---
[facility] [address] [place], [place] [address] Signed DATE OF OPERATION: 11/11/2024 SURGEON: Anshu Molina MD PREOPERATIVE DIAGNOSES: 1. Chronic diarrhea attributed to "irritable bowel syndrome". 2. History of ileocecal resection for complex perforated appendicitis August 28, 2024 including cecum and ileum. POSTOPERATIVE DIAGNOSES: 1. Extensive sigmoid and left-sided diverticulosis. 2. Hyperplasia of area of ileocolonic anastomosis. PROCEDURES: 1. Total colonoscopy to the ileocolic anastomosis with biopsy of hyperplastic area in region of anastomosis. 2. Biopsy of rectum. ANESTHESIA: Intravenous sedation, fentanyl 150 mcg, and Versed 6 mg. INDICATION: This 69-year-old white woman is a patient of AMELIA Barry. She has had longstanding chronic diarrhea attributed to "irritable bowel syndrome." She uses dicyclomine with some benefit. She declines my recommendation of a low-FODMAP diet at this time. She has asked for and we are obtaining a celiac disease panel today. She is now to undergo colonoscopy to better characterize her diarrhea issue to assure that there is no colitis or other cause. She understands the risk of colonoscopy including, but not limited to bleeding, infection, and perforation. FINDINGS: The prep was good. Complete colonoscopy was undertaken to the ileocolic anastomosis. There appeared to be an area of hyperplasia in the region of the anastomosis, certainly not obstructing or anything of that sort, which was biopsied. She had numerous diverticula of the left colon and sigmoid. There was no evidence of polyp or actual colitis per se. Biopsies were taken of the rectum as well. DESCRIPTION OF PROCEDURE: The patient was brought to the endoscopy suite and placed in lateral decubitus position, given intravenous sedation to the point of slurred speech and nystagmus. Digital rectal Electronically Signed By: ANSHU MOLINA MD 11/11/24 1245 PATIENT NAME: BERLIN ROSENBAUM OPERATIVE REPORT DATE OF : 51 REPORT #: [id number] PHYSICIAN: ANSHU MOLINA MD PCP: SHANIQUE HUYNH PAC REPORT IS CONFIDENTIAL AND NOT TO BE RELEASED WITHOUT AUTHORIZATION [facility] [address] [place], [place] [address] Signed examination was normal. Full cardiopulmonary monitoring was maintained. An Olympus video colonoscope was passed in the rectum after a normal anorectal examination allowing for passage of the scope ultimately to the ileocolic anastomosis. There was an area of hyperplasia initially appearing as a possible sessile polyp, but on narrow band imaging and further examination appeared less likely to be an adenomatous lesion. Biopsies were taken of it to assure this, however. The scope was then withdrawn and examination throughout showed only extensive diverticular changes throughout the colon. The rectum was biopsied to assess for occult colitis. The scope was removed. The patient was taken to the recovery room in good condition. CONCLUDING DIAGNOSIS: Diarrhea of uncertain etiology; given the extent of diverticulosis, which can be a paradoxically notable cause of diarrhea, consideration might be made for a fiber supplement such as Citrucel one scoop powder daily. We will be planning to check a celiac disease panel in any case. I would like to see her back in the office in 4-6 weeks to assess her progress. Anshu Molina MD JM/MODL /[id number] cc: Shanique Huynh PA-C Copies: SHANIQUE HUYNH ~ Electronically Signed By: ANSHU MOLINA MD 11/11/24 1245 PATIENT NAME: BERLIN ROSENBAUM OPERATIVE REPORT DATE OF : 51 REPORT #: [id number] PHYSICIAN: ANSHU MOLINA MD PCP: SHANIQUE HUYNH REPORT IS CONFIDENTIAL AND NOT TO BE RELEASED WITHOUT AUTHORIZATION
[2024-11-13 17:04] LABS: TISSUE TRANSGLUTAMINAS TTG,IGA <1.02 FLU (0.00-4.99)
--- NOTE | 2024-11-15 14:22 | PATH ---
[facility] [address] [place], [place] [address] Signed SPECIMEN(S): A ILEUM BIOPSY SPECIMEN(S): B RECTUM BIOPSY SPECIMEN SOURCE: A. ILEUM BIOPSY B. RECTUM BIOPSY CLINICAL HISTORY: IBS, diarrhea, mucosal hyperplasia at anastomosis, diverticulosis FINAL PATHOLOGIC DIAGNOSIS: A. Ileum, biopsies - Focal superficial acute ileitis, nonspecific, with discontinuous fragments of ulcer exudate. - Negative for granulomas or dysplasia. B. Rectum, biopsies - Fragments of hyperplastic colonic mucosa, negative for colitis, granulomas or dysplasia. AMB MICROSCOPIC EXAMINATION: Histologic sections of all submitted blocks are examined by light microscopy. These findings, together with the gross examination, support the pathologic diagnosis. GROSS DESCRIPTION: A. The specimen, labeled and designated "Sukhdeep ileum biopsy," is received in formalin and consists of three gordillo soft tissue fragments, ranging from 0.2-0.3 cm. Entirely submitted in (A1). B. The specimen, labeled and designated "Sukhdeep, rectum biopsy," is received in formalin and consists of three gordillo soft tissue fragments, ranging from 0.2-0.4 cm. Entirely submitted in (B1). VB (under the direct supervision of a pathologist) The Gross Description was prepared using a voice recognition system. The report was reviewed for accuracy; however, sound-alike word errors, addition and/or deletions may occur. If there is any question about this report, please contact Client Services. ADDITIONAL NOTES: Immunohistochemical and/or in situ hybridization studies if performed in this case included appropriate positive controls that reacted as expected. This PATIENT NAME: BERLIN ROSENBAUM PATHOLOGY DATE OF : 51 REPORT #: [id number] PHYSICIAN: NNAMDI MCLAIN PCP: PHILL PEDRAZA PAC REPORT IS CONFIDENTIAL AND NOT TO BE RELEASED WITHOUT AUTHORIZATION [address], [place] [address] Signed test was developed and its performance characteristics determined by [facility]. It has not been cleared or approved by the U.S. Food and Drug Administration. The FDA has determined that such clearance or approval is not necessary. This test is used for clinical purposes. It should not be regarded as investigational or for research. [facility] is certified under the Clinical Laboratory Improvement Amendments of 1988 (CLIA) as qualified to perform high complexity clinical laboratory testing. PERFORMING LABORATORY: Technical component was performed by [facility], [address] [place] [id number] (CLIA# [id number]). Professional interpretation was performed by [facility] - [address] [id number] Diagnostician: Loida Hobbs MD Pathologist Electronically Signed 11/15/2024 Copies: ~ PATIENT NAME: BERLIN ROSENBAUM PATHOLOGY DATE OF : 51 REPORT #: [id number] PHYSICIAN: NNAMDI PATHOLOGY PCP: PHILL PEDRAZA PAC REPORT IS CONFIDENTIAL AND NOT TO BE RELEASED WITHOUT AUTHORIZATION
== END 2024-11-11 10:55 | disposition home or self-care (01) ==
LOC: DS 08:17
PROVIDERS: ATTEND Surgery
PROC: 0DBP8ZX Excision of Rectum, Via Natural or Artificial Opening Endoscopic, Diagnostic (ICD-10-PCS; principal; 2024-11-11 10:00)
DX: K58.0 Irritable bowel syndrome with diarrhea (principal); K57.30 Diverticulosis of large intestine without perforation or abscess without bleeding; K63.89 Other specified diseases of intestine; K21.9 Gastro-esophageal reflux disease without esophagitis; Z79.899 Other long term (current) drug therapy
CPT/HCPCS: 36415; 88305; 99153; G0500; J2250; J3010; J7121